=== PATIENT | male | born 1975 | race Caucasian/White ===

== ENCOUNTER 2016-07-31 14:54 | Emergency (ER) | payer BC ==
[2008-09-24 00:02] VITALS: BP 162/90
[~2016-07-31] VITALS: Ht 188 cm; Wt 79.5 kg
[~2016-07-31 14:54] MED LIST: ASPIRIN 32325 MG/TAB PO; ASPIRIN 81M81 MG/TA2 PO; BACTRIM DS 8001 TAB PO; BRILINTA90 MG PO; CEPHALEXIN250 M1; CEPHALEXIN500 M1 PO; CIPRO 100MG TA100 MG PO; CIPRO 250MG TA250 MG PO; CIPRO 500MG TA500 MG PO; CIPRO500 MG PO; CLEOCIN HC150 MG/CAP PO; CLEOCIN HCL300 MG PO; CLINDAMYCIN150 MG PO; DIFLUCAN150 MG PO; DOXYCYCLINE 10100 MG PO; FERROUS GL325 MG/TAB PO; FOLIC ACID 40400 MCG PO; HUMALOG100 U/ML SC; INSULIN LANTUS; LANTUS SOLOS100 U/ML SQ; LANTUS SQ; LANTUS100 U/ML; LANTUS100 U/ML SQ; LEVAQUIN 750MG750 M1 PO; LIORESAL 1010 MG/TAB PO; LOPRESSOR 550 MG/TAB PO; LORTAB 5/500 501 TAB PO; MED FOR TACHYCARDIA; MONODOX100 PO; NORCO 325 MG-51 TAB PO; NORCO 325 MG-7.1 TAB PO; NOVLOG SQ; NOVOLOG 100U100 U/M1; NOVOLOG 100U100 U/M1 SQ; NOVOLOG 100U100 U/ML SQ; NOVOLOG FLEX100 U/ML SQ; NOVOLOG100 U/ML IV; PERCOCET 325 MG1 TA2 PO; PLAVIX 75MG TAB75 MG PO; PRAVACHOL 20MG20 MG PO; PRINIVIL2.5 MG PO; PRINIVIL20 MG PO; SEPTRA DS 8001 TAB PO; THIAMINE 1100 MG/TAB PO; ULTRAM 50MG TAB50 MG PO; ZESTRIL 20MG TA20 MG PO; ZOCOR 40MG40 MG PO; ZOFRAN 4MG T4 MG/TAB PO; ZYVOX 600MG600 MG PO; [UNRECOGNIZED DRUG - OTHER]
[2016-07-31 15:13] VITALS: TEMP 97.2
[2016-07-31 16:04] LABS: BASO # 0.1 (0.0-0.2); BASO % 0.7 % (0.0-2.0); EOS # 0.1 (0.0-0.7); EOS % 1.5 % (0-4.0); GRAN # 6.1 (1.4-6.5); GRAN % 68.1 % (42.2-75.2); HEMOGLOBIN 15.6 g/dl (13.5-18.0); LYMPH % 22.7 % (20.0-51.0); MEAN CELL VOLUME 86 fl (80.0-100.0); MEAN CORPUSCULAR HEMOGLOBIN 29 pg (27.0-31.0); MEAN CORPUSCULAR HGB CONC 34 g/dl (33.0-37.0); MEAN PLATELET VOLUME 10.1 fl (7.4-10.4); MONO # 0.6 (0.1-0.6); MONO % 6.7 % (1.7-9.3); PLATELET COUNT 317 K/mm3 (130-400); RED BLOOD COUNT 5.38 M/mm3 (4.20-5.60); REDCELL DISTRIBUTION WIDTH-CV 12.5 % (11.5-14.5); WHITE BLOOD COUNT 8.9 K/mm3 (4.8-10.8)
[2016-07-31 16:14] LABS: ADJUSTED CALCIUM 9.5 mg/dL (8.4-10.2); ALBUMIN 4.3 gm/dL (3.5-5.0); BILIRUBIN,TOTAL 1.1 mg/dL (0.0-1.0); CALCIUM 9.7 mg/dL (8.4-10.2); CREATININE, serum 1.81 mg/dL (0.66-1.25); POTASSIUM 4.6 mmol/L (3.4-5.0); TOTAL PROTEIN 8.3 gm/dL (6.4-8.2)
[2016-07-31 17:28] LABS: PH 5 (5-8); SQUAMOUS EPITHELIAL None Seen /hpf; URINE APPEARANCE Clear; URINE BACTERIA None Seen /hpf; URINE BILIRUBIN Negative (NEGATIVE); URINE BLOOD 1+ (NEGATIVE); URINE COLOR Yellow; URINE GLUCOSE 3+ (NEGATIVE); URINE KETONE 2+ (NEGATIVE); URINE RBC 0-2 /hpf; URINE UROBILINOGEN Negative (NEGATIVE); URINE WBC 0-2 /hpf
[2016-07-31 18:03] VITALS: BP 143/98
[2016-07-31] MEDS ORDERED: VOLTAREN 75 DR75 MG PO (18:11)
[2016-07-31] MEDS ORDERED: BENADRYL25 M2 PO (18:11)
[2016-07-31] MEDS ORDERED: LEVAQUIN 5500 MG/TA1 PO (18:11)
[2016-07-31] MEDS ORDERED: SUDAFED30 MG PO (18:11)
[2016-07-31 18:48] VITALS: PULSE 86
== END 2016-07-31 18:48 | disposition home or self-care (01) ==
LOC: COL.ER 14:54
PROVIDERS: Emergency Medicine
DX: E10.65 Type 1 diabetes mellitus with hyperglycemia (principal); Z79.4 Long term (current) use of insulin; R51 Headache; J32.0 Chronic maxillary sinusitis; J32.2 Chronic ethmoidal sinusitis; I10 Essential (primary) hypertension; F17.210 Nicotine dependence, cigarettes, uncomplicated; Z89.511 Acquired absence of right leg below knee
CPT/HCPCS: J1200; J1815; J1956; J2765; J3010; J7030

== ENCOUNTER 2016-10-04 10:15 | Outpatient (RCR) | payer OTHER ==
[~2016-10-04 10:15] MED LIST changes: +BENADRYL25 M2 PO; +LEVAQUIN 5500 MG/TA1 PO; +SUDAFED30 MG PO; +VOLTAREN 75 DR75 MG PO
== END 2016-11-26 | disposition home or self-care (01) ==
LOC: WSPT
DX: Z89.511 Acquired absence of right leg below knee (principal); E11.69 Type 2 diabetes mellitus with other specified complication; Z79.4 Long term (current) use of insulin

== ENCOUNTER → 2016-10-17 | Outpatient (CLI) | payer MEDICARE ==
[~2016-10-17] MED LIST changes: +TOPROL XL 50MG50 MG PO; +ZOCOR 20MG20 MG PO
== END ==
LOC: SUN.DIA 08:45
DX: E10.65 Type 1 diabetes mellitus with hyperglycemia (principal); Z79.4 Long term (current) use of insulin; Z71.3 Dietary counseling and surveillance; E78.5 Hyperlipidemia, unspecified; I73.9 Peripheral vascular disease, unspecified
CPT/HCPCS: G0108

== ENCOUNTER → 2016-11-28 | Outpatient (CLI) | payer MEDICARE | LOC: COL.VAS 09:00 | DX: E10.59 Type 1 diabetes mellitus with other circulatory complications (principal); I73.9 Peripheral vascular disease, unspecified; R01.1 Cardiac murmur, unspecified; I35.8 Other nonrheumatic aortic valve disorders; F17.210 Nicotine dependence, cigarettes, uncomplicated; Z89.511 Acquired absence of right leg below knee ==

== ENCOUNTER 2016-12-05 17:00 | Emergency (ER) | payer MEDICARE ==
[2008-09-24 00:02] VITALS: BP 162/90
[~2016-12-05] VITALS: Ht 188 cm; Wt 84.1 kg
[~2016-12-05 17:00] MED LIST changes: -TOPROL XL 50MG50 MG PO; -ZOCOR 20MG20 MG PO
[2016-12-05 17:02] VITALS: TEMP 97.4
[2016-12-05] MEDS ORDERED: ZOCOR 20MG20 MG PO (17:07)
[2016-12-05] MEDS ORDERED: TOPROL XL 50MG50 MG PO (17:17)
[2016-12-05 17:38] LABS: ADJUSTED CALCIUM 8.6 mg/dL (8.4-10.2); BILIRUBIN,TOTAL 0.5 mg/dL (0.0-1.0); CALCIUM 8.6 mg/dL (8.4-10.2); CREATININE, serum 1.54 mg/dL (0.66-1.25); PHOSPHOROUS 3.2 mg/dL (2.5-4.5); POTASSIUM 3.9 mmol/L (3.4-5.0); TOTAL PROTEIN 7.3 gm/dL (6.4-8.2)
[2016-12-05 17:40] LABS: BASO # 0.1 (0.0-0.2); BASO % 0.6 % (0.0-2.0); EOS # 0.2 (0.0-0.7); EOS % 1.8 % (0-4.0); GRAN # 7.3 (1.4-6.5); GRAN % 81.9 % (42.2-75.2); HEMATOCRIT 42.7 % (42.0-52.0); HEMOGLOBIN 14.3 g/dl (13.5-18.0); LYMPH # 0.8 (1.2-3.4); LYMPH % 8.6 % (20.0-51.0); MEAN CELL VOLUME 88 fl (80.0-100.0); MEAN CORPUSCULAR HEMOGLOBIN 30 pg (27.0-31.0); MEAN CORPUSCULAR HGB CONC 34 g/dl (33.0-37.0); MEAN PLATELET VOLUME 10.1 fl (7.4-10.4); MONO # 0.6 (0.1-0.6); MONO % 6.9 % (1.7-9.3); PLATELET COUNT 247 K/mm3 (130-400); RED BLOOD COUNT 4.84 M/mm3 (4.20-5.60); REDCELL DISTRIBUTION WIDTH-CV 12.2 % (11.5-14.5); WHITE BLOOD COUNT 8.9 K/mm3 (4.8-10.8)
[2016-12-05 19:01] VITALS: BP 131/93; PULSE 83
[2016-12-05 19:07] LABS: PH 5 (5-8); SQUAMOUS EPITHELIAL None Seen /hpf; URINE APPEARANCE Clear; URINE BACTERIA None Seen /hpf; URINE BILIRUBIN Negative (NEGATIVE); URINE BLOOD 1+ (NEGATIVE); URINE COLOR Yellow; URINE GLUCOSE 2+ (NEGATIVE); URINE KETONE Negative (NEGATIVE); URINE RBC None Seen /hpf; URINE UROBILINOGEN Negative (NEGATIVE); URINE WBC 0-2 /hpf
== END 2016-12-05 19:02 | disposition home or self-care (01) ==
LOC: COL.ER 17:00
PROVIDERS: Emergency Medicine
DX: E10.649 Type 1 diabetes mellitus with hypoglycemia without coma (principal); Z89.511 Acquired absence of right leg below knee; Z79.4 Long term (current) use of insulin

== ENCOUNTER 2017-01-28 08:42 | Emergency (ER) | payer MEDICARE ==
[2008-09-24 00:02] VITALS: BP 162/90
[~2017-01-28] VITALS: Ht 188 cm; Wt 84.1 kg
[~2017-01-28 08:42] MED LIST changes: +TOPROL XL 50MG50 MG PO; +ZOCOR 20MG20 MG PO
[2017-01-28 08:49] VITALS: TEMP 97
[2017-01-28 09:17] LABS: BASO # 0.1 (0.0-0.2); BASO % 0.5 % (0.0-2.0); EOS # 0.3 (0.0-0.7); EOS % 2.9 % (0-4.0); GRAN # 6.8 (1.4-6.5); GRAN % 75.1 % (42.2-75.2); LYMPH # 1.3 (1.2-3.4); LYMPH % 14.3 % (20.0-51.0); MEAN CELL VOLUME 90 fl (80.0-100.0); MEAN CORPUSCULAR HEMOGLOBIN 29 pg (27.0-31.0); MEAN CORPUSCULAR HGB CONC 33 g/dl (33.0-37.0); MEAN PLATELET VOLUME 9.8 fl (7.4-10.4); MONO # 0.6 (0.1-0.6); MONO % 6.9 % (1.7-9.3); PLATELET COUNT 246 K/mm3 (130-400); RED BLOOD COUNT 4.45 M/mm3 (4.20-5.60); REDCELL DISTRIBUTION WIDTH-CV 12.5 % (11.5-14.5); WHITE BLOOD COUNT 9.1 K/mm3 (4.8-10.8)
[2017-01-28 09:27] LABS: ALBUMIN 3.7 gm/dL (3.5-5.0); BILIRUBIN,TOTAL 0.4 mg/dL (0.0-1.0); CALCIUM 8.8 mg/dL (8.4-10.2); CREATININE, serum 1.27 mg/dL (0.66-1.25); POTASSIUM 3.8 mmol/L (3.4-5.0); TOTAL PROTEIN 6.8 gm/dL (6.4-8.2)
[2017-01-28 10:24] LABS: PH 6 (5-8); SQUAMOUS EPITHELIAL None Seen /hpf; URINE APPEARANCE Clear; URINE BACTERIA None Seen /hpf; URINE BILIRUBIN Negative (NEGATIVE); URINE BLOOD Negative (NEGATIVE); URINE COLOR Yellow; URINE GLUCOSE 3+ (NEGATIVE); URINE KETONE Negative (NEGATIVE); URINE RBC 0-2 /hpf; URINE UROBILINOGEN Negative (NEGATIVE); URINE WBC 0-2 /hpf
[2017-01-28 10:51] VITALS: BP 137/91; PULSE 94
== END 2017-01-28 10:51 | disposition home or self-care (01) ==
LOC: COL.ER 08:42
PROVIDERS: Emergency Medicine
DX: E10.649 Type 1 diabetes mellitus with hypoglycemia without coma (principal); F17.210 Nicotine dependence, cigarettes, uncomplicated; Z79.4 Long term (current) use of insulin; Z79.82 Long term (current) use of aspirin; Z89.412 Acquired absence of left great toe; Z89.511 Acquired absence of right leg below knee

== ENCOUNTER 2017-10-01 16:16 | Inpatient (IN) | payer MEDICARE ==
[~2017-10-01] VITALS: Ht 188 cm; Wt 80.0 kg
[2017-10-01 18:15] LABS: MEAN CELL VOLUME 86 fl (80.0-100.0); MEAN CORPUSCULAR HGB CONC 34 g/dl (33.0-37.0); MEAN PLATELET VOLUME 9.9 fl (7.4-10.4); PLATELET COUNT 362 K/mm3 (130-400); RED BLOOD COUNT 3.75 M/mm3 (4.20-5.60); REDCELL DISTRIBUTION WIDTH-CV 12.2 % (11.5-14.5)
[2017-10-01 18:17] LABS: HEMATOCRIT 32.4 % (42.0-52.0); HEMOGLOBIN 10.9 g/dl (13.5-18.0); MEAN CORPUSCULAR HEMOGLOBIN 29 pg (27.0-31.0)
[2017-10-01 18:21] LABS: ALBUMIN 3.6 gm/dL (3.5-5.0); BILIRUBIN,TOTAL 0.9 mg/dL (0.0-1.0); CALCIUM 8.2 mg/dL (8.4-10.2); CREATININE, serum 1.5 mg/dL (0.66-1.25); POTASSIUM 4.1 mmol/L (3.4-5.0); TOTAL PROTEIN 7.2 gm/dL (6.4-8.2)
[2017-10-01 18:36] LABS: BAND 10 % (0-10); LYMPHOCYTE 15 % (20.0-51.0); NEUTROPHILS 66 % (42.0-75.2); PLATELET ESTIMATE NORMAL (NORMAL)
[2017-10-01 19:09] LABS: C-REACTIVE PROTEIN 33.2 mg/dL (0.0-0.9)
[2017-10-01 21:39] VITALS: BP 116/72; PULSE 96; TEMP 100.7
[2017-10-02 01:11] VITALS: BP 115/68; PULSE 107; TEMP 102.1
[2017-10-02 03:26] LABS: COLLECTION METHOD CLEAN CATCH
[2017-10-02 03:39] LABS: MUCOUS Present /lpf; PH 5 (5-8); SQUAMOUS EPITHELIAL 0-2 /hpf; URINE APPEARANCE Clear; URINE BACTERIA None Seen /hpf; URINE BILIRUBIN Negative (NEGATIVE); URINE BLOOD 3+ (NEGATIVE); URINE COLOR Yellow; URINE GLUCOSE 3+ (NEGATIVE); URINE KETONE 1+ (NEGATIVE); URINE LEUKOCYTE ESTERASE Negative (NEGATIVE); URINE NITRATE Negative (NEGATIVE); URINE PROTEIN(semi-quant) Negative (NEGATIVE); URINE UROBILINOGEN Negative (NEGATIVE)
[2017-10-02 04:25] VITALS: BP 101/63; PULSE 88; TEMP 99.1
[2017-10-02 06:22] LABS: MEAN CELL VOLUME 86 fl (80.0-100.0); MEAN CORPUSCULAR HGB CONC 33 g/dl (33.0-37.0); PLATELET COUNT 381 K/mm3 (130-400); RED BLOOD COUNT 3.55 M/mm3 (4.20-5.60); REDCELL DISTRIBUTION WIDTH-CV 12.2 % (11.5-14.5)
[2017-10-02 06:25] LABS: HEMATOCRIT 30.6 % (42.0-52.0); HEMOGLOBIN 10.1 g/dl (13.5-18.0); MEAN CORPUSCULAR HEMOGLOBIN 28 pg (27.0-31.0)
[2017-10-02 06:40] LABS: ALBUMIN 3.2 gm/dL (3.5-5.0); BILIRUBIN,TOTAL 0.5 mg/dL (0.0-1.0); CALCIUM 7.9 mg/dL (8.4-10.2); CREATININE, serum 1.34 mg/dL (0.66-1.25); POTASSIUM 3.9 mmol/L (3.4-5.0); TOTAL PROTEIN 6.6 gm/dL (6.4-8.2)
[2017-10-02 07:09] LABS: BAND 22 % (0-10); BASOPHIL 1 % (0-2); EOSINOPHIL 1 % (0-4); LYMPHOCYTE 18 % (20.0-51.0); NEUTROPHILS 50 % (42.0-75.2); PLATELET ESTIMATE NORMAL (NORMAL)
[2017-10-02 07:43] VITALS: BP 98/62; PULSE 94; TEMP 99.8
[2017-10-02 11:31] VITALS: BP 106/66; PULSE 101; TEMP 99.5
[2017-10-02 15:01] VITALS: BP 129/69; PULSE 97; TEMP 101.7
[2017-10-02 20:31] VITALS: BP 118/68; PULSE 100; TEMP 101
[2017-10-03 01:35] VITALS: BP 127/88; PULSE 92; TEMP 99.3
[2017-10-03 05:04] VITALS: BP 124/74; PULSE 93; TEMP 99.8
[2017-10-03 06:42] LABS: MEAN CELL VOLUME 87 fl (80.0-100.0); MEAN CORPUSCULAR HGB CONC 33 g/dl (33.0-37.0); MEAN PLATELET VOLUME 9.8 fl (7.4-10.4); PLATELET COUNT 394 K/mm3 (130-400); RED BLOOD COUNT 3.57 M/mm3 (4.20-5.60); REDCELL DISTRIBUTION WIDTH-CV 12.2 % (11.5-14.5)
[2017-10-03 07:03] LABS: HEMATOCRIT 31.2 % (42.0-52.0); HEMOGLOBIN 10.2 g/dl (13.5-18.0); MEAN CORPUSCULAR HEMOGLOBIN 29 pg (27.0-31.0)
[2017-10-03 07:05] LABS: CALCIUM 7.7 mg/dL (8.4-10.2); CREATININE, serum 1.17 mg/dL (0.66-1.25); POTASSIUM 4.1 mmol/L (3.4-5.0)
[2017-10-03 08:41] VITALS: BP 116/76; PULSE 92; TEMP 98.4
[2017-10-03 08:41] LABS: BAND 18 % (0-10); EOSINOPHIL 1 % (0-4); LYMPHOCYTE 15 % (20.0-51.0); NEUTROPHILS 58 % (42.0-75.2); PLATELET ESTIMATE NORMAL (NORMAL)
[2017-10-03 08:42] LABS: HYPOCHROMIA 1+
[2017-10-03 12:05] VITALS: BP 120/71; PULSE 89; TEMP 98.2
[2017-10-03 15:58] VITALS: BP 106/71; PULSE 79; TEMP 98.6
[2017-10-03 20:51] VITALS: BP 139/87; PULSE 107; TEMP 100.7
[2017-10-04] VITALS (8 sets, daily range): BP systolic 117–145; BP diastolic 57–80; PULSE 72–99; TEMP 98–101.3
[2017-10-04 06:51] LABS: MEAN CELL VOLUME 88 fl (80.0-100.0); MEAN CORPUSCULAR HGB CONC 33 g/dl (33.0-37.0); MEAN PLATELET VOLUME 9.7 fl (7.4-10.4); PLATELET COUNT 449 K/mm3 (130-400); RED BLOOD COUNT 3.54 M/mm3 (4.20-5.60); REDCELL DISTRIBUTION WIDTH-CV 12.4 % (11.5-14.5)
[2017-10-04 06:55] LABS: CALCIUM 7.9 mg/dL (8.4-10.2); CREATININE, serum 1.07 mg/dL (0.66-1.25); HEMOGLOBIN 10.1 g/dl (13.5-18.0); MEAN CORPUSCULAR HEMOGLOBIN 29 pg (27.0-31.0); POTASSIUM 3.6 mmol/L (3.4-5.0)
[2017-10-04 07:36] LABS: BAND 14 % (0-10); BASOPHIL 1 % (0-2); EOSINOPHIL 2 % (0-4); LYMPHOCYTE 14 % (20.0-51.0); MYELOCYTE 2 % (0-0); NEUTROPHILS 57 % (42.0-75.2)
[2017-10-04 07:37] LABS: PLATELET ESTIMATE INCREASED (NORMAL)
[2017-10-04 07:38] LABS: POLYCHROMASIA 1+
[2017-10-05 04:29] VITALS: BP 129/85; PULSE 96; TEMP 98.4
[2017-10-05 06:49] LABS: BASO # 0.1 (0.0-0.2); BASO % 0.4 % (0.0-2.0); EOS # 0.2 (0.0-0.7); EOS % 1.6 % (0-4.0); GRAN # 10.2 (1.4-6.5); GRAN % 77.9 % (42.2-75.2); LYMPH # 1.3 (1.2-3.4); LYMPH % 9.8 % (20.0-51.0); MEAN CELL VOLUME 87 fl (80.0-100.0); MEAN CORPUSCULAR HGB CONC 33 g/dl (33.0-37.0); MEAN PLATELET VOLUME 9.6 fl (7.4-10.4); MONO # 1.3 (0.1-0.6); MONO % 9.6 % (1.7-9.3); PLATELET COUNT 488 K/mm3 (130-400); RED BLOOD COUNT 3.29 M/mm3 (4.20-5.60); REDCELL DISTRIBUTION WIDTH-CV 12.3 % (11.5-14.5)
[2017-10-05 06:58] LABS: HEMATOCRIT 28.7 % (42.0-52.0); HEMOGLOBIN 9.4 g/dl (13.5-18.0); MEAN CORPUSCULAR HEMOGLOBIN 29 pg (27.0-31.0)
[2017-10-05 07:08] LABS: CALCIUM 7.8 mg/dL (8.4-10.2); CREATININE, serum 0.91 mg/dL (0.66-1.25); POTASSIUM 3.8 mmol/L (3.4-5.0)
[2017-10-05 07:26] VITALS: BP 120/74; PULSE 87; TEMP 98.8
[2017-10-05 11:30] VITALS: PULSE 88; TEMP 100.3
[2017-10-05 15:24] VITALS: BP 137/86; PULSE 84; TEMP 98.3
[2017-10-05 19:46] VITALS: BP 108/59; PULSE 100; TEMP 98.7
[2017-10-06] VITALS (7 sets, daily range): BP systolic 120–142; BP diastolic 66–83; PULSE 75–101; TEMP 98.3–99.6
[2017-10-06 07:22] LABS: BASO # 0.1 (0.0-0.2); BASO % 0.5 % (0.0-2.0); EOS # 0.2 (0.0-0.7); GRAN # 7.9 (1.4-6.5); GRAN % 71.7 % (42.2-75.2); LYMPH # 1.6 (1.2-3.4); LYMPH % 14.5 % (20.0-51.0); MEAN CELL VOLUME 88 fl (80.0-100.0); MEAN CORPUSCULAR HGB CONC 33 g/dl (33.0-37.0); MEAN PLATELET VOLUME 9.3 fl (7.4-10.4); MONO # 1.2 (0.1-0.6); MONO % 10.8 % (1.7-9.3); PLATELET COUNT 488 K/mm3 (130-400); RED BLOOD COUNT 3.32 M/mm3 (4.20-5.60); REDCELL DISTRIBUTION WIDTH-CV 12.4 % (11.5-14.5)
[2017-10-06 07:29] LABS: HEMATOCRIT 29.1 % (42.0-52.0); HEMOGLOBIN 9.5 g/dl (13.5-18.0); MEAN CORPUSCULAR HEMOGLOBIN 29 pg (27.0-31.0)
[2017-10-06 07:31] LABS: CALCIUM 7.8 mg/dL (8.4-10.2); CREATININE, serum 1.03 mg/dL (0.66-1.25); POTASSIUM 3.5 mmol/L (3.4-5.0)
[2017-10-06 19:45] LABS: SYNOVIAL FL. MONONUCLEAR 8.6 % (0-75); SYNOVIAL FLUID RBC 249000 /mm3 (0-0); SYNOVIAL FLUID WBC 72572 /mm3 (200-600)
[2017-10-06 23:17] LABS: SYNOVIAL FLUID APPEARANCE TURBID; SYNOVIAL FLUID COLOR RED
[2017-10-07 04:29] VITALS: BP 147/80; PULSE 80; TEMP 98.6
[2017-10-07 06:52] LABS: BASO % 0.4 % (0.0-2.0); EOS # 0.2 (0.0-0.7); EOS % 2.5 % (0-4.0); GRAN # 6.7 (1.4-6.5); GRAN % 71.3 % (42.2-75.2); LYMPH # 1.3 (1.2-3.4); MEAN CELL VOLUME 87 fl (80.0-100.0); MEAN CORPUSCULAR HGB CONC 32 g/dl (33.0-37.0); MEAN PLATELET VOLUME 9.1 fl (7.4-10.4); MONO # 1.1 (0.1-0.6); MONO % 11.3 % (1.7-9.3); PLATELET COUNT 520 K/mm3 (130-400); REDCELL DISTRIBUTION WIDTH-CV 12.6 % (11.5-14.5)
[2017-10-07 07:12] LABS: HEMATOCRIT 29.7 % (42.0-52.0); HEMOGLOBIN 9.6 g/dl (13.5-18.0); MEAN CORPUSCULAR HEMOGLOBIN 28 pg (27.0-31.0)
[2017-10-07 07:14] LABS: CALCIUM 7.9 mg/dL (8.4-10.2); CREATININE, serum 1.04 mg/dL (0.66-1.25); MAGNESIUM 2.1 mg/dL (1.6-2.3); PHOSPHOROUS 3.2 mg/dL (2.5-4.5); POTASSIUM 3.5 mmol/L (3.4-5.0)
[2017-10-07 07:35] VITALS: BP 119/74; PULSE 86; TEMP 98.4
[2017-10-07 12:10] VITALS: BP 139/83; PULSE 87; TEMP 97.9
[2017-10-07 15:42] VITALS: BP 147/88; PULSE 93; TEMP 97.6
[2017-10-07 21:03] VITALS: BP 126/80; PULSE 88; TEMP 98.3
[2017-10-07 23:29] VITALS: BP 104/62; PULSE 87; TEMP 98.6
[2017-10-08 04:09] VITALS: BP 116/69; PULSE 78; TEMP 98.5
[2017-10-08 06:42] LABS: BASO % 0.5 % (0.0-2.0); EOS # 0.2 (0.0-0.7); EOS % 2.8 % (0-4.0); GRAN # 5.4 (1.4-6.5); GRAN % 63.4 % (42.2-75.2); LYMPH # 1.9 (1.2-3.4); LYMPH % 21.7 % (20.0-51.0); MEAN CELL VOLUME 88 fl (80.0-100.0); MEAN CORPUSCULAR HGB CONC 32 g/dl (33.0-37.0); MEAN PLATELET VOLUME 9.2 fl (7.4-10.4); MONO # 0.9 (0.1-0.6); MONO % 10.9 % (1.7-9.3); PLATELET COUNT 530 K/mm3 (130-400); RED BLOOD COUNT 3.27 M/mm3 (4.20-5.60); REDCELL DISTRIBUTION WIDTH-CV 12.6 % (11.5-14.5)
[2017-10-08 06:53] LABS: CALCIUM 7.7 mg/dL (8.4-10.2); CREATININE, serum 1.1 mg/dL (0.66-1.25); MAGNESIUM 2.1 mg/dL (1.6-2.3); PHOSPHOROUS 3.6 mg/dL (2.5-4.5); POTASSIUM 3.7 mmol/L (3.4-5.0)
[2017-10-08 06:55] LABS: HEMATOCRIT 28.8 % (42.0-52.0); HEMOGLOBIN 9.3 g/dl (13.5-18.0); MEAN CORPUSCULAR HEMOGLOBIN 28 pg (27.0-31.0)
[2017-10-08 08:47] VITALS: BP 123/80; PULSE 88; TEMP 98.5
[2017-10-08 10:56] VITALS: BP 134/80; PULSE 78; TEMP 98.6
[2017-10-08 15:17] VITALS: BP 103/93; PULSE 85; TEMP 98.6
[2017-10-08 20:11] VITALS: BP 101/55; PULSE 99; TEMP 98.5
[2017-10-09 00:54] VITALS: BP 122/74; PULSE 84; TEMP 98.6
[2017-10-09 04:47] VITALS: BP 124/81; PULSE 72; TEMP 98.6
[2017-10-09 06:36] LABS: BASO % 0.5 % (0.0-2.0); EOS # 0.3 (0.0-0.7); EOS % 3.2 % (0-4.0); GRAN # 4.9 (1.4-6.5); GRAN % 64.2 % (42.2-75.2); LYMPH # 1.7 (1.2-3.4); LYMPH % 21.6 % (20.0-51.0); MEAN CELL VOLUME 88 fl (80.0-100.0); MEAN CORPUSCULAR HGB CONC 32 g/dl (33.0-37.0); MEAN PLATELET VOLUME 9.5 fl (7.4-10.4); MONO # 0.8 (0.1-0.6); MONO % 9.7 % (1.7-9.3); PLATELET COUNT 485 K/mm3 (130-400); RED BLOOD COUNT 3.36 M/mm3 (4.20-5.60); REDCELL DISTRIBUTION WIDTH-CV 12.4 % (11.5-14.5)
[2017-10-09 06:37] LABS: HEMATOCRIT 29.7 % (42.0-52.0); HEMOGLOBIN 9.6 g/dl (13.5-18.0); MEAN CORPUSCULAR HEMOGLOBIN 29 pg (27.0-31.0)
[2017-10-09 06:54] LABS: CALCIUM 8.2 mg/dL (8.4-10.2); CREATININE, serum 0.96 mg/dL (0.66-1.25); POTASSIUM 4.5 mmol/L (3.4-5.0)
[2017-10-09 07:36] VITALS: BP 143/82; PULSE 74; TEMP 97.6
[2017-10-09 11:28] VITALS: BP 93/57; PULSE 91; TEMP 98.1
[2017-10-09 15:43] VITALS: BP 110/75; PULSE 73; TEMP 98.9
[2017-10-09 19:50] VITALS: BP 103/61; PULSE 81; TEMP 98.5
[2017-10-10 00:25] VITALS: BP 109/78; PULSE 74; TEMP 98.6
[2017-10-10 05:40] VITALS: BP 118/72; PULSE 78; TEMP 98.6
[2017-10-10 06:52] LABS: BASO % 0.5 % (0.0-2.0); EOS # 0.3 (0.0-0.7); EOS % 3.1 % (0-4.0); GRAN # 5.3 (1.4-6.5); GRAN % 64.4 % (42.2-75.2); LYMPH # 1.8 (1.2-3.4); LYMPH % 22.5 % (20.0-51.0); MEAN CELL VOLUME 89 fl (80.0-100.0); MEAN CORPUSCULAR HGB CONC 32 g/dl (33.0-37.0); MEAN PLATELET VOLUME 9.6 fl (7.4-10.4); MONO # 0.7 (0.1-0.6); PLATELET COUNT 427 K/mm3 (130-400); RED BLOOD COUNT 3.39 M/mm3 (4.20-5.60); REDCELL DISTRIBUTION WIDTH-CV 12.3 % (11.5-14.5)
[2017-10-10 06:59] LABS: CALCIUM 8.2 mg/dL (8.4-10.2); CREATININE, serum 0.99 mg/dL (0.66-1.25); POTASSIUM 4.4 mmol/L (3.4-5.0)
[2017-10-10 07:14] LABS: HEMOGLOBIN 9.5 g/dl (13.5-18.0); MEAN CORPUSCULAR HEMOGLOBIN 28 pg (27.0-31.0)
[2017-10-10 08:03] VITALS: BP 117/79; PULSE 80; TEMP 98.9
[2017-10-10 11:16] VITALS: BP 121/76; PULSE 91; TEMP 98.7
[2017-10-10] MEDS ORDERED: TYLENOL 325MG325 MG PO (15:12)
[2017-10-10] MEDS ORDERED: Florastor PO (15:12)
[2017-10-10] MEDS ORDERED: NOVOLOG 100U100 U/M1 SQ ×2 (15:13→15:14)
[2017-10-10] MEDS ORDERED: PROBIOTIC ACID1 EAC3 PO (15:13)
[2017-10-10] MEDS ORDERED: LEVEMIR100 U/ML SQ (15:13)
[2017-10-10] MEDS ORDERED: MELAT3MGTAB PO (15:14)
[2017-10-10] MEDS ORDERED: VANCOCIN HCL500 MG IV (15:16)
[2017-10-10] MEDS ORDERED: CEFEPIME2 GM/100 M IV (15:20)
[2017-10-10 15:59] VITALS: BP 122/79; PULSE 87; TEMP 98.7
[2017-10-10 20:13] VITALS: BP 113/65; PULSE 86; TEMP 97.9
[2017-10-11] VITALS (14 sets, daily range): BP systolic 93–145; BP diastolic 58–91; PULSE 61–86; TEMP 97.8–99.1
== END 2017-10-11 20:18 | disposition home or self-care (01) | DRG 854 ==
LOC: COL.ER 16:16 → MEDICAL 19:20
PROVIDERS: Internal Medicine; Nurse Practitioner; Nurse Practitioner Family; Orthopaedic Surgery; Physician Assistant
PROC: 0S9G3ZX Drainage of Left Ankle Joint, Percutaneous Approach, Diagnostic (ICD-10-PCS; 2017-10-06)
PROC: 0MD Bursae and Ligaments, Extraction (ICD-10-PCS; 2017-10-11)
PROC: 0SJG4ZZ Inspection of Left Ankle Joint, Percutaneous Endoscopic Approach (ICD-10-PCS; principal; 2017-10-11 07:00)
DX: A41.01 Sepsis due to Methicillin susceptible Staphylococcus aureus (principal); M00.872 Arthritis due to other bacteria, left ankle and foot; L03.116 Cellulitis of left lower limb; N17.9 Acute kidney failure, unspecified; N39.0 Urinary tract infection, site not specified; E87.1 Hypo-osmolality and hyponatremia; L97.429 Non-pressure chronic ulcer of left heel and midfoot with unspecified severity; L97.419 Non-pressure chronic ulcer of right heel and midfoot with unspecified severity; E10.22 Type 1 diabetes mellitus with diabetic chronic kidney disease; E10.65 Type 1 diabetes mellitus with hyperglycemia; N18.3 Chronic kidney disease, stage 3 (moderate); Z79.4 Long term (current) use of insulin; Z89.511 Acquired absence of right leg below knee; E10.621 Type 1 diabetes mellitus with foot ulcer; Z89.412 Acquired absence of left great toe; E10.42 Type 1 diabetes mellitus with diabetic polyneuropathy; Z87.891 Personal history of nicotine dependence; B95.61 Methicillin susceptible Staphylococcus aureus infection as the cause of diseases classified elsewhere; D64.9 Anemia, unspecified
CPT/HCPCS: OP; 99222-AI; 99231-AI; 99232-AI; A9503; C1751; G0378; J0692; J0696; J1644; J1815; J2060; J2250; J2270; J2405; J2704; J2765; J3010; J3370; J7030; J7050

== ENCOUNTER 2017-10-13 17:08 | Outpatient (RCR) | payer MEDICARE ==
[2008-09-24 00:02] VITALS: BP 162/90
[2017-10-12 06:43] VITALS: BP 111/70; PULSE 92; TEMP 98.7
[2017-10-12 18:03] VITALS: BP 88/59; PULSE 97; TEMP 98
[~2017-10-13] VITALS: Ht 188 cm; Wt 81.0 kg
[~2017-10-13 17:08] MED LIST changes: +CEFEPIME2 GM/100 M IV; +Florastor PO; +LEVEMIR100 U/ML SQ; +MELAT3MGTAB PO; +PROBIOTIC ACID1 EAC3 PO; +TYLENOL 325MG325 MG PO; +VANCOCIN HCL500 MG IV
[2017-10-14 07:32] VITALS: BP 95/61; PULSE 91; TEMP 98
[2017-10-15 07:17] VITALS: BP 86/56; PULSE 86; TEMP 98.1
[2017-10-15 17:25] VITALS: BP 92/61; PULSE 97; TEMP 97.9
[2017-10-16 06:32] VITALS: BP 106/68; PULSE 101; TEMP 97.5
[2017-10-16 17:19] VITALS: BP 110/72; PULSE 96; TEMP 97.9
[2017-10-17 06:47] VITALS: BP 96/62; PULSE 98; TEMP 97.2
[2017-10-17 17:53] VITALS: BP 112/64; PULSE 101; TEMP 97.4
[2017-10-18 07:01] VITALS: BP 103/67; PULSE 97; TEMP 98
[2017-10-18 17:39] VITALS: BP 88/51; PULSE 106; TEMP 98.1
[2017-10-18 17:48] VITALS: BP 111/80; PULSE 106; TEMP 98
[2017-10-19 06:50] VITALS: BP 104/68; PULSE 94; TEMP 97.7
[2017-10-21 08:38] VITALS: BP 112/66; PULSE 90; TEMP 97.6
[2017-10-22 06:48] VITALS: BP 107/74; PULSE 61; TEMP 97.4
[2017-10-22 16:55] VITALS: BP 110/76; PULSE 76; TEMP 97.6
[2017-10-23 06:54] VITALS: BP 118/75; PULSE 94; TEMP 98.1
[2017-10-23 17:30] VITALS: BP 119/81; PULSE 91; TEMP 97.8
[2017-10-24 06:55] LABS: BASO # 0.1 (0.0-0.2); BASO % 1.3 % (0.0-2.0); EOS # 0.6 (0.0-0.7); EOS % 9.1 % (0-4.0); GRAN % 57.1 % (42.2-75.2); LYMPH # 1.7 (1.2-3.4); LYMPH % 24.1 % (20.0-51.0); MEAN CELL VOLUME 88 fl (80.0-100.0); MEAN CORPUSCULAR HGB CONC 32 g/dl (33.0-37.0); MEAN PLATELET VOLUME 8.9 fl (7.4-10.4); MONO # 0.6 (0.1-0.6); MONO % 8.1 % (1.7-9.3); PLATELET COUNT 299 K/mm3 (130-400); RED BLOOD COUNT 3.35 M/mm3 (4.20-5.60); REDCELL DISTRIBUTION WIDTH-CV 13.2 % (11.5-14.5)
[2017-10-24 06:56] LABS: HEMATOCRIT 29.4 % (42.0-52.0); HEMOGLOBIN 9.4 g/dl (13.5-18.0); MEAN CORPUSCULAR HEMOGLOBIN 28 pg (27.0-31.0)
[2017-10-24 07:02] VITALS: BP 111/71; PULSE 48; TEMP 98
[2017-10-24 07:20] LABS: ALBUMIN 3.3 gm/dL (3.5-5.0); BILIRUBIN,TOTAL 0.2 mg/dL (0.0-1.0); C-REACTIVE PROTEIN 1.3 mg/dL (0.0-0.9); CALCIUM 8.4 mg/dL (8.4-10.2); CREATININE, serum 1.26 mg/dL (0.66-1.25); POTASSIUM 4.7 mmol/L (3.4-5.0); TOTAL PROTEIN 7.5 gm/dL (6.4-8.2)
[2017-10-24 07:30] LABS: ERYTHROCYTE SEDIMENTATION RATE 75 mm/hr (0-15)
[2017-10-24 17:35] VITALS: BP 110/75; PULSE 109; TEMP 98.4
[2017-10-25 07:09] VITALS: BP 104/64; PULSE 102; TEMP 97.4
[2017-10-25 17:34] VITALS: BP 80/55; PULSE 115; TEMP 98.1
[2017-10-26 07:18] VITALS: BP 109/58; PULSE 89; TEMP 98
[2017-10-26 17:00] VITALS: BP 99/68; PULSE 103; TEMP 97.7
[2017-10-26 21:58] LABS: C-PEPTIDE,SERUM <0.01 ng/mL (0.80-3.90)
[2017-10-27 01:40] LABS: INSULIN 8 uIU/mL (2-23)
[2017-10-27 07:48] VITALS: BP 107/78; PULSE 97; TEMP 97
[2017-10-28 07:35] VITALS: BP 117/47; PULSE 93; TEMP 97.7
[2017-10-29 06:43] LABS: BASO # 0.1 (0.0-0.2); BASO % 0.9 % (0.0-2.0); EOS # 0.6 (0.0-0.7); EOS % 11.2 % (0-4.0); GRAN # 2.9 (1.4-6.5); GRAN % 50.3 % (42.2-75.2); LYMPH # 1.4 (1.2-3.4); LYMPH % 25.1 % (20.0-51.0); MEAN CELL VOLUME 88 fl (80.0-100.0); MEAN CORPUSCULAR HGB CONC 32 g/dl (33.0-37.0); MONO # 0.7 (0.1-0.6); MONO % 12.3 % (1.7-9.3); PLATELET COUNT 273 K/mm3 (130-400); REDCELL DISTRIBUTION WIDTH-CV 13.8 % (11.5-14.5)
[2017-10-29 06:44] LABS: HEMOGLOBIN 9.5 g/dl (13.5-18.0); MEAN CORPUSCULAR HEMOGLOBIN 28 pg (27.0-31.0)
[2017-10-29 06:56] LABS: ALBUMIN 3.5 gm/dL (3.5-5.0); BILIRUBIN,TOTAL 0.3 mg/dL (0.0-1.0); C-REACTIVE PROTEIN 1.3 mg/dL (0.0-0.9); CALCIUM 8.6 mg/dL (8.4-10.2); CREATININE, serum 1.25 mg/dL (0.66-1.25); POTASSIUM 4.3 mmol/L (3.4-5.0); TOTAL PROTEIN 7.9 gm/dL (6.4-8.2)
[2017-10-29 07:07] LABS: ERYTHROCYTE SEDIMENTATION RATE 73 mm/hr (0-15)
[2017-10-29 07:25] VITALS: BP 113/87; PULSE 97; TEMP 98.1
[2017-10-29 17:15] VITALS: BP 115/80; PULSE 92; TEMP 98.4
[2017-10-30 08:03] VITALS: BP 122/77; PULSE 95; TEMP 98
[2017-10-30 16:43] VITALS: BP 128/78; PULSE 98; TEMP 98
[2017-10-31 06:15] VITALS: BP 117/82; PULSE 104; TEMP 98.4
[2017-10-31 18:15] VITALS: BP 110/60; PULSE 99; TEMP 98
[2017-11-01 06:46] VITALS: BP 114/70; PULSE 95
[2017-11-01 16:26] VITALS: BP 111/73; PULSE 90; TEMP 98.2
[2017-11-02 06:43] VITALS: BP 111/73; PULSE 89
[2017-11-02 16:45] VITALS: BP 107/71; PULSE 103; TEMP 98.3
[2017-11-03 07:35] VITALS: BP 109/77; PULSE 92; TEMP 97
[2017-11-04 07:41] VITALS: BP 94/63; PULSE 90; TEMP 98.1
[2017-11-04 08:35] VITALS: BP 127/78; PULSE 90
[2017-11-05 06:47] VITALS: BP 147/87; PULSE 94; TEMP 97.9
[2017-11-05 07:15] LABS: BASO # 0.1 (0.0-0.2); BASO % 0.9 % (0.0-2.0); EOS # 0.5 (0.0-0.7); EOS % 9.3 % (0-4.0); GRAN # 2.9 (1.4-6.5); GRAN % 52.5 % (42.2-75.2); LYMPH # 1.4 (1.2-3.4); LYMPH % 25.4 % (20.0-51.0); MEAN CELL VOLUME 88 fl (80.0-100.0); MEAN CORPUSCULAR HGB CONC 32 g/dl (33.0-37.0); MEAN PLATELET VOLUME 9.4 fl (7.4-10.4); MONO # 0.6 (0.1-0.6); MONO % 11.7 % (1.7-9.3); PLATELET COUNT 237 K/mm3 (130-400); REDCELL DISTRIBUTION WIDTH-CV 14.3 % (11.5-14.5)
[2017-11-05 07:16] LABS: HEMATOCRIT 31.7 % (42.0-52.0); MEAN CORPUSCULAR HEMOGLOBIN 28 pg (27.0-31.0)
[2017-11-05 07:57] LABS: ALBUMIN 3.6 gm/dL (3.5-5.0); BILIRUBIN,TOTAL 0.4 mg/dL (0.0-1.0); CALCIUM 8.6 mg/dL (8.4-10.2); CREATININE, serum 1.27 mg/dL (0.66-1.25); POTASSIUM 4.6 mmol/L (3.4-5.0); TOTAL PROTEIN 7.7 gm/dL (6.4-8.2)
[2017-11-05 18:00] VITALS: BP 109/80; PULSE 92; TEMP 97.8
[2017-11-06 06:36] VITALS: BP 119/80; PULSE 96
[2017-11-06 18:27] VITALS: BP 107/70; PULSE 86; TEMP 98.2
[2017-11-07 06:56] VITALS: BP 107/76; PULSE 94
[2017-11-07 19:02] VITALS: BP 95/59; PULSE 102; TEMP 97.2
[2017-11-08 07:29] VITALS: BP 101/64; PULSE 86; TEMP 97.7
[2017-11-08 18:17] VITALS: BP 115/70; PULSE 93; TEMP 98
[2017-11-09 06:48] VITALS: BP 105/72; PULSE 100; TEMP 98.1
[2017-11-09 17:59] VITALS: BP 121/71; PULSE 104; TEMP 98.2
[2017-11-10 07:30] VITALS: BP 104/75; PULSE 88; TEMP 97.8
[2017-11-11 07:30] VITALS: BP 105/71; PULSE 86; TEMP 97.4
[2017-11-12 07:02] LABS: BASO % 0.6 % (0.0-2.0); EOS # 0.3 (0.0-0.7); EOS % 5.8 % (0-4.0); GRAN % 56.7 % (42.2-75.2); LYMPH # 1.3 (1.2-3.4); LYMPH % 25.1 % (20.0-51.0); MEAN CELL VOLUME 87 fl (80.0-100.0); MEAN CORPUSCULAR HGB CONC 33 g/dl (33.0-37.0); MEAN PLATELET VOLUME 9.2 fl (7.4-10.4); MONO # 0.6 (0.1-0.6); MONO % 11.4 % (1.7-9.3); PLATELET COUNT 257 K/mm3 (130-400); REDCELL DISTRIBUTION WIDTH-CV 14.2 % (11.5-14.5)
[2017-11-12 07:05] LABS: HEMATOCRIT 32.2 % (42.0-52.0); HEMOGLOBIN 10.5 g/dl (13.5-18.0); MEAN CORPUSCULAR HEMOGLOBIN 28 pg (27.0-31.0)
[2017-11-12 07:16] LABS: ALBUMIN 3.7 gm/dL (3.5-5.0); BILIRUBIN,TOTAL 0.3 mg/dL (0.0-1.0); C-REACTIVE PROTEIN 0.8 mg/dL (0.0-0.9); CALCIUM 8.9 mg/dL (8.4-10.2); CREATININE, serum 1.21 mg/dL (0.66-1.25); TOTAL PROTEIN 7.8 gm/dL (6.4-8.2)
[2017-11-12 07:26] LABS: ERYTHROCYTE SEDIMENTATION RATE 28 mm/hr (0-15)
[2017-11-12 08:00] VITALS: BP 102/65; PULSE 84; TEMP 97.9
[2017-11-12 18:21] VITALS: BP 136/88; PULSE 102; TEMP 98
[2017-11-13 06:42] VITALS: BP 108/70; PULSE 90; TEMP 97.3
[2017-11-14 06:42] VITALS: BP 102/71; PULSE 84; TEMP 97.4
[2017-11-14 17:41] VITALS: BP 127/82; PULSE 97; TEMP 98.2
[2017-11-15 06:39] VITALS: BP 122/78; PULSE 88; TEMP 97.8
[2017-11-15 17:42] VITALS: BP 120/82; PULSE 81; TEMP 97.6
[2017-11-19 09:31] VITALS: BP 115/73; PULSE 86; TEMP 98
[2017-11-23 11:48] VITALS: BP 98/65; PULSE 90; TEMP 98
== END 2017-11-23 11:49 | disposition home or self-care (01) ==
LOC: EUO 10-14 06:30
PROVIDERS: Internal Medicine; Internal Medicine Infectious Disease; Registered Nurse
DX: L03.90 Cellulitis, unspecified (principal); B99.9 Unspecified infectious disease; M00.9 Pyogenic arthritis, unspecified; E16.2 Hypoglycemia, unspecified; E10.59 Type 1 diabetes mellitus with other circulatory complications; Z79.4 Long term (current) use of insulin; Z45.2 Encounter for adjustment and management of vascular access device
CPT/HCPCS: J0692; J1644; J3370; J7050

== ENCOUNTER → 2017-12-28 | Outpatient (CLI) | payer MEDICARE | LOC: COL.LAB 09:51 | DX: E11.621 Type 2 diabetes mellitus with foot ulcer (principal) ==

== ENCOUNTER → 2018-01-11 | Outpatient (CLI) | payer MEDICARE ==
[2018-01-11 11:28] LABS: RED BLOOD COUNT 4.69 M/mm3 (4.20-5.60)
[2018-01-11 11:29] LABS: HEMATOCRIT 39.8 % (42.0-52.0); HEMOGLOBIN 13.3 g/dl (13.5-18.0); MEAN CELL VOLUME 85 fl (80.0-100.0); MEAN CORPUSCULAR HEMOGLOBIN 28 pg (27.0-31.0); MEAN CORPUSCULAR HGB CONC 33 g/dl (33.0-37.0); MEAN PLATELET VOLUME 9.6 fl (7.4-10.4); PLATELET COUNT 260 K/mm3 (130-400); REDCELL DISTRIBUTION WIDTH-CV 12.7 % (11.5-14.5)
[2018-01-11 11:43] LABS: CALCIUM 8.9 mg/dL (8.4-10.2); CREATININE, serum 1.4 mg/dL (0.66-1.25); POTASSIUM 4.6 mmol/L (3.4-5.0)
== END ==
LOC: COL.LAB 11:14
PROVIDERS: Internal Medicine Interventional Cardiology
DX: I70.248 Atherosclerosis of native arteries of left leg with ulceration of other part of lower leg (principal); L97.921 Non-pressure chronic ulcer of unspecified part of left lower leg limited to breakdown of skin

== ENCOUNTER → 2018-03-19 | Outpatient (CLI) | payer MEDICARE ==
[2018-03-19 12:37] LABS: HEMATOCRIT 40.9 % (42.0-52.0); HEMOGLOBIN 13.4 g/dl (13.5-18.0); MEAN CELL VOLUME 86 fl (80.0-100.0); MEAN CORPUSCULAR HEMOGLOBIN 28 pg (27.0-31.0); MEAN CORPUSCULAR HGB CONC 33 g/dl (33.0-37.0); MEAN PLATELET VOLUME 9.7 fl (7.4-10.4); PLATELET COUNT 315 K/mm3 (130-400); RED BLOOD COUNT 4.77 M/mm3 (4.20-5.60); REDCELL DISTRIBUTION WIDTH-CV 12.4 % (11.5-14.5)
[2018-03-19 12:55] LABS: CREATININE, serum 1.59 mg/dL (0.66-1.25); POTASSIUM 4.5 mmol/L (3.4-5.0)
== END ==
LOC: COL.LAB 12:02
PROVIDERS: Internal Medicine Interventional Cardiology
DX: I99.8 Other disorder of circulatory system (principal)

== ENCOUNTER → 2018-04-05 | Outpatient (CLI) | payer MEDICARE | LOC: ZCOL.LAB 13:46 | DX: E11.621 Type 2 diabetes mellitus with foot ulcer (principal); L97.529 Non-pressure chronic ulcer of other part of left foot with unspecified severity ==

== ENCOUNTER 2018-04-09 11:59 | Inpatient (IN) | payer MEDICARE ==
[2008-09-24 00:02] VITALS: BP 162/90
[~2018-04-09] VITALS: Ht 188 cm; Wt 84.1 kg
[2018-04-09 12:55] LABS: BASO # 0.1 (0.0-0.2); BASO % 0.6 % (0.0-2.0); EOS # 0.4 (0.0-0.7); EOS % 4.9 % (0-4.0); GRAN # 5.8 (1.4-6.5); GRAN % 67.2 % (42.2-75.2); HEMOGLOBIN 10.5 g/dl (13.5-18.0); LYMPH # 1.4 (1.2-3.4); LYMPH % 16.7 % (20.0-51.0); MEAN CELL VOLUME 86 fl (80.0-100.0); MEAN CORPUSCULAR HEMOGLOBIN 29 pg (27.0-31.0); MEAN CORPUSCULAR HGB CONC 33 g/dl (33.0-37.0); MEAN PLATELET VOLUME 9.3 fl (7.4-10.4); MONO # 0.9 (0.1-0.6); MONO % 10.3 % (1.7-9.3); PLATELET COUNT 405 K/mm3 (130-400); RED BLOOD COUNT 3.67 M/mm3 (4.20-5.60); REDCELL DISTRIBUTION WIDTH-CV 12.4 % (11.5-14.5)
[2018-04-09 12:56] LABS: HEMATOCRIT 31.5 % (42.0-52.0)
[2018-04-09 13:09] LABS: CALCIUM 8.8 mg/dL (8.4-10.2); CREATININE, serum 2.07 mg/dL (0.66-1.25); POTASSIUM 4.6 mmol/L (3.4-5.0)
[2018-04-09 13:35] LABS: C-REACTIVE PROTEIN 16.2 mg/dL (0.0-0.9)
[2018-04-09] MEDS ORDERED: BACTRIM DS 8001 TAB PO (15:30)
[2018-04-09] MEDS ORDERED: NOVOLOG 100U100 U/M1 SQ (15:30)
[2018-04-09 17:10] VITALS: BP 91/57; PULSE 81; TEMP 98.5
[2018-04-09 20:49] VITALS: BP 107/85; PULSE 95; TEMP 98.2
[2018-04-10] VITALS (7 sets, daily range): BP systolic 97–140; BP diastolic 61–82; PULSE 56–82; TEMP 97.9–98.5
[2018-04-10 06:04] LABS: MEAN CELL VOLUME 89 fl (80.0-100.0); MEAN CORPUSCULAR HGB CONC 32 g/dl (33.0-37.0); MEAN PLATELET VOLUME 9.3 fl (7.4-10.4); PLATELET COUNT 366 K/mm3 (130-400); RED BLOOD COUNT 3.42 M/mm3 (4.20-5.60); REDCELL DISTRIBUTION WIDTH-CV 12.4 % (11.5-14.5)
[2018-04-10 06:05] LABS: HEMATOCRIT 30.5 % (42.0-52.0); HEMOGLOBIN 9.7 g/dl (13.5-18.0); MEAN CORPUSCULAR HEMOGLOBIN 28 pg (27.0-31.0)
[2018-04-10 06:12] LABS: CALCIUM 7.8 mg/dL (8.4-10.2); CREATININE, serum 1.66 mg/dL (0.66-1.25); MAGNESIUM 2.2 mg/dL (1.6-2.3); POTASSIUM 4.1 mmol/L (3.4-5.0)
[2018-04-10 07:38] LABS: BAND 2 % (0-10); EOSINOPHIL 5 % (0-4); LYMPHOCYTE 32 % (20.0-51.0); NEUTROPHILS 57 % (42.0-75.2); PLATELET ESTIMATE NORMAL (NORMAL)
[2018-04-11] VITALS (12 sets, daily range): BP systolic 89–123; BP diastolic 63–79; PULSE 66–75; TEMP 97.4–98.5
[2018-04-11 09:39] LABS: CALCIUM 8.1 mg/dL (8.4-10.2); CREATININE, serum 1.37 mg/dL (0.66-1.25); POTASSIUM 5.2 mmol/L (3.4-5.0)
[2018-04-11 15:53] LABS: POTASSIUM 4.2 mmol/L (3.4-5.0)
[2018-04-11 16:09] LABS: VANCOMYCIN TROUGH 16.01 ug/mL (7.00-20.00)
[2018-04-12] VITALS (7 sets, daily range): BP systolic 102–127; BP diastolic 64–90; PULSE 73–82; TEMP 97.3–98.3
[2018-04-12 06:11] LABS: BASO % 0.5 % (0.0-2.0); EOS # 0.5 (0.0-0.7); EOS % 7.5 % (0-4.0); GRAN # 3.3 (1.4-6.5); GRAN % 53.1 % (42.2-75.2); LYMPH # 1.7 (1.2-3.4); LYMPH % 28.2 % (20.0-51.0); MEAN CELL VOLUME 90 fl (80.0-100.0); MEAN CORPUSCULAR HGB CONC 31 g/dl (33.0-37.0); MEAN PLATELET VOLUME 9.3 fl (7.4-10.4); MONO # 0.6 (0.1-0.6); MONO % 10.4 % (1.7-9.3); PLATELET COUNT 404 K/mm3 (130-400); RED BLOOD COUNT 3.35 M/mm3 (4.20-5.60); REDCELL DISTRIBUTION WIDTH-CV 12.1 % (11.5-14.5)
[2018-04-12 06:19] LABS: CREATININE, serum 1.4 mg/dL (0.66-1.25); POTASSIUM 4.3 mmol/L (3.4-5.0)
[2018-04-12 06:22] LABS: HEMOGLOBIN 9.3 g/dl (13.5-18.0); MEAN CORPUSCULAR HEMOGLOBIN 28 pg (27.0-31.0)
[2018-04-12] MEDS ORDERED: LANTUS SOLOS100 U/ML SQ (11:42)
[2018-04-13 03:26] VITALS: BP 136/89; PULSE 68; TEMP 98.3
[2018-04-13 05:45] LABS: BASO % 0.6 % (0.0-2.0); EOS # 0.4 (0.0-0.7); EOS % 6.2 % (0-4.0); GRAN # 3.4 (1.4-6.5); GRAN % 52.7 % (42.2-75.2); LYMPH % 30.4 % (20.0-51.0); MEAN CELL VOLUME 87 fl (80.0-100.0); MEAN CORPUSCULAR HGB CONC 32 g/dl (33.0-37.0); MEAN PLATELET VOLUME 9.1 fl (7.4-10.4); MONO # 0.6 (0.1-0.6); MONO % 9.8 % (1.7-9.3); PLATELET COUNT 388 K/mm3 (130-400); RED BLOOD COUNT 3.37 M/mm3 (4.20-5.60); REDCELL DISTRIBUTION WIDTH-CV 12.2 % (11.5-14.5)
[2018-04-13 05:48] LABS: HEMATOCRIT 29.2 % (42.0-52.0); HEMOGLOBIN 9.4 g/dl (13.5-18.0); MEAN CORPUSCULAR HEMOGLOBIN 28 pg (27.0-31.0)
[2018-04-13 06:01] LABS: CALCIUM 8.3 mg/dL (8.4-10.2); CREATININE, serum 1.32 mg/dL (0.66-1.25); POTASSIUM 4.4 mmol/L (3.4-5.0)
[2018-04-13 08:00] VITALS: BP 117/73; PULSE 69; TEMP 97.6
[2018-04-13 11:36] VITALS: BP 113/74; PULSE 73; TEMP 97.5
[2018-04-13 15:54] VITALS: BP 157/87; PULSE 70; TEMP 97.5
[2018-04-13 20:00] VITALS: BP 124/81; PULSE 74; TEMP 97.7
[2018-04-14] VITALS (12 sets, daily range): BP systolic 101–143; BP diastolic 65–88; PULSE 64–79; TEMP 97.4–98.4
[2018-04-14 07:19] LABS: BASO # 0.1 (0.0-0.2); BASO % 0.6 % (0.0-2.0); EOS # 0.4 (0.0-0.7); EOS % 5.4 % (0-4.0); GRAN # 4.9 (1.4-6.5); GRAN % 62.6 % (42.2-75.2); LYMPH # 1.9 (1.2-3.4); LYMPH % 23.7 % (20.0-51.0); MEAN CELL VOLUME 88 fl (80.0-100.0); MEAN CORPUSCULAR HGB CONC 32 g/dl (33.0-37.0); MONO # 0.6 (0.1-0.6); MONO % 7.3 % (1.7-9.3); PLATELET COUNT 421 K/mm3 (130-400); RED BLOOD COUNT 3.49 M/mm3 (4.20-5.60)
[2018-04-14 07:23] LABS: HEMATOCRIT 30.7 % (42.0-52.0); HEMOGLOBIN 9.9 g/dl (13.5-18.0); MEAN CORPUSCULAR HEMOGLOBIN 28 pg (27.0-31.0)
[2018-04-14 07:30] LABS: CALCIUM 8.2 mg/dL (8.4-10.2); CREATININE, serum 1.35 mg/dL (0.66-1.25); POTASSIUM 4.2 mmol/L (3.4-5.0)
[2018-04-15 00:46] VITALS: BP 121/80; PULSE 74; TEMP 98.1
[2018-04-15 04:00] VITALS: BP 117/60; PULSE 71; TEMP 97.8
[2018-04-15 06:18] LABS: BASO # 0.1 (0.0-0.2); BASO % 0.9 % (0.0-2.0); EOS # 0.4 (0.0-0.7); EOS % 6.3 % (0-4.0); GRAN % 56.3 % (42.2-75.2); LYMPH % 27.9 % (20.0-51.0); MEAN CELL VOLUME 86 fl (80.0-100.0); MEAN CORPUSCULAR HGB CONC 33 g/dl (33.0-37.0); MEAN PLATELET VOLUME 8.8 fl (7.4-10.4); MONO # 0.6 (0.1-0.6); MONO % 8.3 % (1.7-9.3); PLATELET COUNT 410 K/mm3 (130-400); RED BLOOD COUNT 3.51 M/mm3 (4.20-5.60); REDCELL DISTRIBUTION WIDTH-CV 12.1 % (11.5-14.5)
[2018-04-15 06:28] LABS: CALCIUM 8.2 mg/dL (8.4-10.2); CREATININE, serum 1.42 mg/dL (0.66-1.25); POTASSIUM 4.2 mmol/L (3.4-5.0)
[2018-04-15 06:29] LABS: HEMOGLOBIN 9.9 g/dl (13.5-18.0); MEAN CORPUSCULAR HEMOGLOBIN 28 pg (27.0-31.0)
[2018-04-15 07:38] VITALS: BP 123/75; PULSE 64; TEMP 98.3
[2018-04-15 11:34] VITALS: BP 105/60; PULSE 89; TEMP 97.9
[2018-04-15 15:52] VITALS: BP 139/81; PULSE 88; TEMP 97.8
[2018-04-15] MEDS ORDERED: CIPRO 500MG TA500 MG PO (15:52)
[2018-04-15] MEDS ORDERED: LANTUS100 U/ML SQ (15:53)
== END 2018-04-15 17:35 | disposition home or self-care (01) | DRG 617 ==
LOC: COL.ER 11:59 → MEDICAL 14:15 → SURG 14:15
PROVIDERS: Emergency Medicine; Family Medicine; Internal Medicine; Nurse Practitioner Family; Orthopaedic Surgery; Physician Assistant
PROC: 0Y6Y0Z0 Detachment at Left 5th Toe, Complete, Open Approach (ICD-10-PCS; principal; 2018-04-11 07:30)
PROC: 0HDNXZZ Extraction of Left Foot Skin, External Approach (ICD-10-PCS; 2018-04-14 08:00)
DX: E10.69 Type 1 diabetes mellitus with other specified complication (principal); M86.172 Other acute osteomyelitis, left ankle and foot; N17.9 Acute kidney failure, unspecified; E10.22 Type 1 diabetes mellitus with diabetic chronic kidney disease; E10.621 Type 1 diabetes mellitus with foot ulcer; L97.523 Non-pressure chronic ulcer of other part of left foot with necrosis of muscle; Z89.511 Acquired absence of right leg below knee; N18.3 Chronic kidney disease, stage 3 (moderate); Z79.4 Long term (current) use of insulin; Z87.891 Personal history of nicotine dependence; B95.61 Methicillin susceptible Staphylococcus aureus infection as the cause of diseases classified elsewhere; B96.89 Other specified bacterial agents as the cause of diseases classified elsewhere; B95.2 Enterococcus as the cause of diseases classified elsewhere; E87.5 Hyperkalemia; E10.65 Type 1 diabetes mellitus with hyperglycemia; E10.649 Type 1 diabetes mellitus with hypoglycemia without coma
CPT/HCPCS: 99222-AI; 99232-AI; 99239; J0690; J0696; J1644; J1815; J2250; J2405; J2704; J3010; J3370; J7030; J7040; J7050

== ENCOUNTER → 2018-08-23 | Outpatient (CLI) | payer MEDICARE | LOC: ZCOL.LAB 14:40 | DX: E10.621 Type 1 diabetes mellitus with foot ulcer (principal); L03.119 Cellulitis of unspecified part of limb ==

== ENCOUNTER 2018-10-21 07:34 | Emergency (ER) | payer MEDICARE ==
[2008-09-24 00:02] VITALS: BP 162/90
[~2018-10-21] VITALS: Ht 188 cm; Wt 86.4 kg
[2018-10-21 07:37] VITALS: TEMP 97.8
[2018-10-21 07:56] LABS: BASO # 0.1 (0.0-0.2); BASO % 1.4 % (0.0-2.0); EOS # 0.7 (0.0-0.7); EOS % 10.9 % (0-4.0); GRAN # 3.3 (1.4-6.5); GRAN % 52.6 % (42.2-75.2); HEMATOCRIT 39.6 % (42.0-52.0); HEMOGLOBIN 12.9 g/dl (13.5-18.0); LYMPH # 1.6 (1.2-3.4); LYMPH % 25.6 % (20.0-51.0); MEAN CELL VOLUME 89 fl (80.0-100.0); MEAN CORPUSCULAR HEMOGLOBIN 29 pg (27.0-31.0); MEAN CORPUSCULAR HGB CONC 33 g/dl (33.0-37.0); MEAN PLATELET VOLUME 9.7 fl (7.4-10.4); MONO # 0.6 (0.1-0.6); MONO % 9.3 % (1.7-9.3); PLATELET COUNT 279 K/mm3 (130-400); RED BLOOD COUNT 4.45 M/mm3 (4.20-5.60); REDCELL DISTRIBUTION WIDTH-CV 13.2 % (11.5-14.5)
[2018-10-21 08:06] LABS: CALCIUM 8.9 mg/dL (8.4-10.2); CREATININE, serum 1.97 (0.66-1.25); POTASSIUM 4.2 mmol/L (3.4-5.0)
[2018-10-21 08:58] VITALS: BP 107/77; PULSE 83
== END 2018-10-21 09:00 | disposition home or self-care (01) ==
LOC: COL.ER 07:34
PROVIDERS: Emergency Medicine
DX: E11.649 Type 2 diabetes mellitus with hypoglycemia without coma (principal); Z79.4 Long term (current) use of insulin; F17.210 Nicotine dependence, cigarettes, uncomplicated

== ENCOUNTER → 2018-12-04 | Outpatient (CLI) | payer MEDICARE ==
[2018-12-05 17:09] LABS: CREATININE OTHER SOURCE 57 mg/dL (()); URINE MICROALBUMIN <0.5 mg/dL (0.0-1.7)
== END ==
LOC: ZCOL.LAB 17:10
PROVIDERS: Family Medicine
DX: E10.9 Type 1 diabetes mellitus without complications (principal)

== ENCOUNTER 2019-03-28 05:37 | Emergency (ER) | payer MEDICARE ==
[~2019-03-28] VITALS: Ht 188 cm; Wt 88.6 kg
[2019-03-28 06:11] LABS: BASO % 0.3 % (0.0-2.0); EOS # 0.1 (0.0-0.7); GRAN # 9.9 (1.4-6.5); HEMATOCRIT 38.2 % (42.0-52.0); HEMOGLOBIN 12.4 g/dl (13.5-18.0); LYMPH # 0.9 (1.2-3.4); MEAN CELL VOLUME 88 fl (80.0-100.0); MEAN CORPUSCULAR HEMOGLOBIN 28 pg (27.0-31.0); MEAN CORPUSCULAR HGB CONC 33 g/dl (33.0-37.0); MONO # 0.8 (0.1-0.6); MONO % 6.4 % (1.7-9.3); PLATELET COUNT 267 K/mm3 (130-400); RED BLOOD COUNT 4.36 M/mm3 (4.20-5.60); REDCELL DISTRIBUTION WIDTH-CV 12.6 % (11.5-14.5)
[2019-03-28] MEDS ORDERED: LANTUS100 U/ML SQ (06:13)
[2019-03-28] MEDS ORDERED: NOVOLOG 100U100 U/M1 SQ (06:17)
[2019-03-28 06:20] LABS: ALANINE AMINOTRANSFERASE < 6 U/L (21-72); ALBUMIN 3.8 gm/dL (3.5-5.0); ALKALINE PHOSPHATASE 108 U/L (50-136); ANION GAP 8 mmol/L (7-16); AST,SGOT 19 U/L (15-37); BILIRUBIN,TOTAL 0.3 mg/dL (0.0-1.0); BLOOD UREA NITROGEN 24 mg/dL (9-20); CALCIUM 8.4 mg/dL (8.4-10.2); CARBON DIOXIDE 28 mmol/L (22-30); CHLORIDE 101 mmol/L (98-107); CREATININE, serum 1.59 (0.66-1.25); GLUCOSE 144 mg/dL (74-106); POTASSIUM 3.8 mmol/L (3.4-5.0); SODIUM 137 mmol/L (137-145); TOTAL PROTEIN 7.2 gm/dL (6.4-8.2)
[2019-03-28] MEDS ORDERED: DOXYCYCLINE HY100 MG PO (06:58)
[2019-03-28 07:09] LABS: COLLECTION METHOD CLEAN CATCH
[2019-03-28 07:17] LABS: MUCOUS Present /lpf; PH 5 (5-8); SQUAMOUS EPITHELIAL None Seen /hpf; URINE APPEARANCE Clear; URINE BACTERIA None Seen /hpf; URINE BILIRUBIN Negative (NEGATIVE); URINE BLOOD 1+ (NEGATIVE); URINE COLOR Straw; URINE GLUCOSE 3+ (NEGATIVE); URINE KETONE 1+ (NEGATIVE); URINE LEUKOCYTE ESTERASE Negative (NEGATIVE); URINE NITRATE Negative (NEGATIVE); URINE PROTEIN(semi-quant) Negative (NEGATIVE); URINE RBC 0-2 /hpf; URINE UROBILINOGEN Negative (NEGATIVE); URINE WBC 0-2 /hpf
[2019-03-28 07:19] VITALS: TEMP 97.6
[2019-03-28 09:05] VITALS: BP 136/97; PULSE 95
== END 2019-03-28 09:25 | disposition home or self-care (01) ==
LOC: COL.ER 05:37
PROVIDERS: Emergency Medicine
DX: E10.649 Type 1 diabetes mellitus with hypoglycemia without coma (principal); E10.22 Type 1 diabetes mellitus with diabetic chronic kidney disease; E10.621 Type 1 diabetes mellitus with foot ulcer; N18.9 Chronic kidney disease, unspecified; L97.529 Non-pressure chronic ulcer of other part of left foot with unspecified severity; Z88.0 Allergy status to penicillin; Z87.891 Personal history of nicotine dependence
CPT/HCPCS: J0780; J1200; J2405; J7030

== ENCOUNTER 2019-04-16 20:12 | Emergency (ER) | payer MEDICARE ==
[2008-09-24 00:02] VITALS: BP 162/90
[~2019-04-16] VITALS: Ht 188 cm; Wt 88.6 kg
[~2019-04-16 20:12] MED LIST changes: +DOXYCYCLINE HY100 MG PO
[2019-04-16 20:20] VITALS: BP 137/79; TEMP 97.3
[2019-04-16 20:45] LABS: BASO # 0.1 (0.0-0.2); BASO % 0.8 % (0.0-2.0); EOS # 0.4 (0.0-0.7); EOS % 2.9 % (0-4.0); GRAN # 10.1 (1.4-6.5); GRAN % 73.6 % (42.2-75.2); HEMATOCRIT 43.1 % (42.0-52.0); HEMOGLOBIN 14.2 g/dl (13.5-18.0); LYMPH # 1.9 (1.2-3.4); LYMPH % 14.1 % (20.0-51.0); MEAN CELL VOLUME 88 fl (80.0-100.0); MEAN CORPUSCULAR HEMOGLOBIN 29 pg (27.0-31.0); MEAN CORPUSCULAR HGB CONC 33 g/dl (33.0-37.0); MEAN PLATELET VOLUME 10.4 fl (7.4-10.4); MONO # 1.2 (0.1-0.6); MONO % 8.4 % (1.7-9.3); PLATELET COUNT 303 K/mm3 (130-400); RED BLOOD COUNT 4.92 M/mm3 (4.20-5.60); REDCELL DISTRIBUTION WIDTH-CV 12.9 % (11.5-14.5)
[2019-04-16 20:51] LABS: CALCIUM 9.2 mg/dL (8.4-10.2); CREATININE, serum 2.22 (0.66-1.25); POTASSIUM 4.1 mmol/L (3.4-5.0)
[2019-04-16 22:05] VITALS: PULSE 84
== END 2019-04-16 22:05 | disposition home or self-care (01) ==
LOC: COL.ER 20:12
PROVIDERS: Emergency Medicine
DX: E10.649 Type 1 diabetes mellitus with hypoglycemia without coma (principal)

== ENCOUNTER 2019-07-25 13:23 | Emergency (ER) | payer MEDICARE ==
[2008-09-24 00:02] VITALS: BP 162/90
[~2019-07-25] VITALS: Ht 188 cm; Wt 89.5 kg
[2019-07-25 13:24] VITALS: TEMP 97.9
[2019-07-25 15:03] VITALS: BP 159/102; PULSE 69
== END 2019-07-25 15:03 | disposition home or self-care (01) ==
LOC: COL.ER 13:23
DX: E11.649 Type 2 diabetes mellitus with hypoglycemia without coma (principal); R03.0 Elevated blood-pressure reading, without diagnosis of hypertension; I10 Essential (primary) hypertension; Z87.891 Personal history of nicotine dependence; Z88.0 Allergy status to penicillin; Z79.4 Long term (current) use of insulin

== ENCOUNTER → 2020-01-01 | Outpatient (CLI) | payer MEDICARE | LOC: ZCOL.LAB 09:28 | DX: E11.9 Type 2 diabetes mellitus without complications (principal); M86.9 Osteomyelitis, unspecified; Z89.422 Acquired absence of other left toe(s) ==

== ENCOUNTER → 2020-01-01 | Outpatient (CLI) | payer MEDICARE ==
[2020-01-01 10:24] LABS: BASO % 0.4 % (0.0-2.0); EOS # 0.4 (0.0-0.7); EOS % 4.6 % (0-4.0); GRAN # 5.6 (1.4-6.5); GRAN % 62.3 % (42.2-75.2); HEMATOCRIT 39.5 % (42.0-52.0); LYMPH # 1.9 (1.2-3.4); LYMPH % 20.6 % (20.0-51.0); MEAN CELL VOLUME 88 fl (80.0-100.0); MEAN CORPUSCULAR HEMOGLOBIN 29 pg (27.0-31.0); MEAN CORPUSCULAR HGB CONC 33 g/dl (33.0-37.0); MONO # 1.1 (0.1-0.6); MONO % 11.9 % (1.7-9.3); PLATELET COUNT 352 K/mm3 (130-400); RED BLOOD COUNT 4.49 M/mm3 (4.20-5.60); REDCELL DISTRIBUTION WIDTH-CV 12.2 % (11.5-14.5)
[2020-01-01 10:27] LABS: BILIRUBIN,TOTAL 0.7 mg/dL (0.0-1.0); C-REACTIVE PROTEIN 7.7 mg/dL (0.0-0.9); CALCIUM 9.4 mg/dL (8.4-10.2); CREATININE, serum 1.72 (0.66-1.25); POTASSIUM 4.4 mmol/L (3.4-5.0); TOTAL PROTEIN 7.9 gm/dL (6.4-8.2)
[2020-01-01 10:45] LABS: ERYTHROCYTE SEDIMENTATION RATE 61 mm/hr (0-15)
== END ==
LOC: COL.LAB 09:35
PROVIDERS: Nurse Practitioner
DX: E11.9 Type 2 diabetes mellitus without complications (principal)

== ENCOUNTER → 2020-01-07 | Outpatient (CLI) | payer MEDICARE ==
[2020-01-07 09:14] LABS: BASO # 0.1 (0.0-0.2); BASO % 0.7 % (0.0-2.0); EOS # 0.4 (0.0-0.7); EOS % 4.9 % (0-4.0); GRAN % 64.4 % (42.2-75.2); HEMOGLOBIN 12.4 g/dl (13.5-18.0); LYMPH # 1.4 (1.2-3.4); LYMPH % 18.2 % (20.0-51.0); MEAN CELL VOLUME 87 fl (80.0-100.0); MEAN CORPUSCULAR HEMOGLOBIN 29 pg (27.0-31.0); MEAN CORPUSCULAR HGB CONC 33 g/dl (33.0-37.0); MEAN PLATELET VOLUME 9.7 fl (7.4-10.4); MONO # 0.9 (0.1-0.6); MONO % 11.4 % (1.7-9.3); PLATELET COUNT 385 K/mm3 (130-400); RED BLOOD COUNT 4.35 M/mm3 (4.20-5.60); REDCELL DISTRIBUTION WIDTH-CV 11.9 % (11.5-14.5)
[2020-01-07 09:24] LABS: ALBUMIN 3.9 gm/dL (3.5-5.0); BILIRUBIN,TOTAL 0.6 mg/dL (0.0-1.0); CALCIUM 8.9 mg/dL (8.4-10.2); CREATININE, serum 1.93 (0.66-1.25); POTASSIUM 4.5 mmol/L (3.4-5.0); TOTAL PROTEIN 7.9 gm/dL (6.4-8.2)
[2020-01-07 09:35] LABS: C-REACTIVE PROTEIN 12.2 mg/dL (0.0-0.9)
[2020-01-07 09:39] LABS: ERYTHROCYTE SEDIMENTATION RATE 86 mm/hr (0-15)
== END ==
LOC: COL.RAD 08:42
PROVIDERS: Nurse Practitioner
DX: L98.8 Other specified disorders of the skin and subcutaneous tissue (principal); T14.8XXA Other injury of unspecified body region, initial encounter; E11.9 Type 2 diabetes mellitus without complications; M86.8X7 Other osteomyelitis, ankle and foot

== ENCOUNTER 2020-01-08 10:17 | Inpatient (IN) | payer MEDICARE, OTHER ==
[~2020-01-08] VITALS: Ht 188 cm; Wt 90.6 kg
[2020-01-13] VITALS (13 sets, daily range): BP systolic 84–135; BP diastolic 51–90; PULSE 75–97; TEMP 97.9–98.2
[2020-01-13] MEDS ORDERED: LANTUS100 U/ML SQ (09:46)
[2020-01-13] MEDS ORDERED: NOVOLOG 100U100 U/M1 SQ (09:47)
[2020-01-13] MEDS ORDERED: ASPIRIN 32325 MG/TAB PO (09:47)
[2020-01-13] MEDS ORDERED: ZOCOR5 MG PO (09:48)
[2020-01-13] MEDS ORDERED: CIPRO 500MG TA500 MG PO (09:49)
[2020-01-13] MEDS ORDERED: PRINIVIL2.5 MG PO (09:49)
--- NOTE | 2020-01-13 14:25 | NUR ---
To room from PACU via bed. Denies pain at this time. Unable to lift legs at this time. 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 Patient denies needs at this time.
--- NOTE | 2020-01-13 15:55 | NUR ---
LIZETTE met with patient to complete initial intake. The patient lives [place] with a [place] address. The patient lives with his parents. The patient has wheelchair and no other DME. The patient does not have a PCP. A list of [place] physicians was provided. The patient receives medications [facility]. The patient does not have a DPOA-HC and was not interested in a form. The patient is not and has no children. He states his parents would make medical decisions for him if needed. The patient may be needing post acute rehab and was interested in sending referral to [facility]. LIZETTE informed Allison IPR Director. LIZETTE will continue to follow.
--- NOTE | 2020-01-13 15:57 | NUR ---
Lying in bed with eyes closed. Opens eyes when name called out. Denies pain. Is able to move left lower extremity. Denies additional needs at this time.
--- NOTE | 2020-01-13 16:06 | NUR ---
The patient has Medicare. SW discussed applying for Medicaid. The patient was agreeable. LIZETTE contacted Pamela Rice, Financial Counselor.
--- NOTE | 2020-01-13 16:28 | NUR ---
Rates pain 7-8/10 in left leg. Administered [place] as prescribed. Patient has left leg elevated and ice pack to site. Denies additional needs at this time.
--- NOTE | 2020-01-13 17:26 | NUR ---
Continues to rate pain 8-9/10 in left leg. Requests pain medication. Administered Tramadol as prescribed. Dressing to left leg CDI, brace in place. Denies additional needs at this time.
--- NOTE | 2020-01-13 18:37 | NUR ---
Continues to rate pain in left leg 9/10 and would like pain medication. Will administer Roxicodone as prescribed.
--- NOTE | 2020-01-13 21:30 | NUR ---
Pt. sitting up in bed at this time. Pt. is A&OX3, assessment complete. IV to lt. wrist patent, IV fluids infusing per orders. Pt. reports pain at a 7 on pain scale, gave pain meds per orders. Dressing to Lt. BKA CDI. Pt. denies further needs, call light within reach.
[2020-01-14] VITALS (7 sets, daily range): BP systolic 122–144; BP diastolic 75–90; PULSE 84–96; TEMP 97.9–98.9
--- NOTE | 2020-01-14 09:26 | NUR ---
PT EATING BREAKFAST. DENIES N/V, PAIN CONTROLLED WITH PO MEDS THIS AM. VSS, PT ASSISTED WITH PERSONAL CARES THIS AM. DRESSING TO LEFT BKA CDI WITH BRACE INPLACE.
--- NOTE | 2020-01-14 14:05 | NUR ---
NOTIFIED DR. PRAJAPATI OF PT BLOOD GLUCOSE AND CONSULTED HOSPITALIST FOR GLYCEMIC CONTROL. RECHECKED PT AND NOW AT 95.
--- NOTE | 2020-01-14 14:16 | NUR ---
Hospitalist was consulted for the patient. PT is recommending home with family for the patient. Allison, IPR Director cannot take the patient due to being too functional. LIZETTE met with the patient to revisit the discharge plan. The patient chose Dr. Soares for his PCP. If Dr. Soares was not taking new patient's he said to set up an appointment with anyone at [facility] that was taking new patients. The patient plans to return home with his family. The patient has support from his parents and brother, Jakob. Jakob assist with picking up medications, if needed. The patient did drive up until this hospitalization. He is very independent and uses he wheelchair to get places if he needs to. The patient states that his brother Jakob is a big help when he needs anything. LIZETTE contacted the patient's mother, Radha. She states he has support at home and assist the patient with his diabetes as needed. Radha states that sometimes at night the patient's blood sugar levels drop and they help the patient at those times. Radha states that Jakob can transport the patient home at discharge. LIZETTE contacted Dr. Soares's office and left a message with his staff. Will continue to follow.
--- NOTE | 2020-01-14 19:03 | NUR ---
REPORT TO REGINALD MADISON.
--- NOTE | 2020-01-15 03:27 | NUR ---
Patient has rested off and on throughout the night. Calls and requests pain medication at 1930. PRN Union administered and effective. Patient called again at 2330 for pain medication. PRN Union administered and effective. Patient has had adequate fluid intake. Fluids INT'd. Knee immobilizer on to left lower extremity. Randall wrap to left stump is CDI. Will continue to monitor patient.
[2020-01-15 03:47] VITALS: BP 128/89; PULSE 89; TEMP 98.6
--- NOTE | 2020-01-15 07:38 | NUR ---
Sitting up in bed. Dr. Houston in and changed dressing to left BKA. Patient would like pain medication when he is available to have it. Patient hopes to go home today. Denies additional needs at this time.
[2020-01-15 07:41] VITALS: BP 148/81; PULSE 95; TEMP 97.8
--- NOTE | 2020-01-15 07:51 | NUR ---
[place] administered as prescribed.
--- NOTE | 2020-01-15 10:49 | NUR ---
LIZETTE contacted Dr. Thomas distance learning unit leader. Dr. Soares is not currently taking new patients at this time. Dr. Serrano is talking new patients and an appointment was set up on Sunday, 01/18 at 1130. The patient was agreeable to this date and time. LIZETTE collaborated the above information with the patient's nurse.
[2020-01-15 12:22] VITALS: BP 129/75; PULSE 78; TEMP 98
[2020-01-15] MEDS ORDERED: NOVOLOG 100U100 U/M1 SQ (12:24)
--- NOTE | 2020-01-15 12:36 | NUR ---
Patient lying in bed watching TV. Reviewed sliding scale for Novolog when the patient goes home and provided written instructions for the sliding scale. Explain that we are waiting on Dr. Houston to provide final discahrge instructions for him to go home. Patient denies further needs at this time.
[2020-01-15] MEDS ORDERED: NORCO 325 MG-7.1 TAB PO (13:26)
--- NOTE | 2020-01-15 16:01 | NUR ---
The patient discharged home today, 01/14 with family to assist with any needs. SW contacted the patient's mother, Radha and she had no concerns for discharge. LIZETTE met with the patient and he did not have any questions or concerns about discharge, he was ready to go home. There are no additional needs at this time.
== END 2020-01-15 15:00 | disposition home or self-care (01) | DRG 617 ==
LOC: SURG 01-13 08:11 → INPTSU 01-13 08:11 → SDCO 01-13 14:00 → EDSTATUS 01-13 14:15 → SURG 01-13 14:25
PROVIDERS: ADMIT Orthopaedic Surgery
PROC: 0Y6J0Z3 Detachment at Left Lower Leg, Low, Open Approach (ICD-10-PCS; principal; 2020-01-13 14:00)
DX: E10.69 Type 1 diabetes mellitus with other specified complication (principal); M86.8X7 Other osteomyelitis, ankle and foot; E10.22 Type 1 diabetes mellitus with diabetic chronic kidney disease; E10.649 Type 1 diabetes mellitus with hypoglycemia without coma; N18.3 Chronic kidney disease, stage 3 (moderate); Z88.0 Allergy status to penicillin
CPT/HCPCS: 99222; 99232-AI; J1610; J1650; J1815; J2250; J2270; J2704; J7030; L1830

== ENCOUNTER 2020-02-08 08:31 | Emergency (ER) | payer MEDICARE ==
[2008-09-24 00:02] VITALS: BP 162/90
[~2020-02-08] VITALS: Ht 188 cm; Wt 88.6 kg
[~2020-02-08 08:31] MED LIST changes: +ZOCOR5 MG PO
[2020-02-08 08:35] VITALS: TEMP 97.9
[2020-02-08 09:52] LABS: BASO # 0.1 (0.0-0.2); BASO % 0.8 % (0.0-2.0); EOS # 0.7 (0.0-0.7); EOS % 6.5 % (0-4.0); GRAN # 6.3 (1.4-6.5); GRAN % 61.3 % (42.2-75.2); HEMOGLOBIN 12.3 g/dl (13.5-18.0); LYMPH # 2.1 (1.2-3.4); LYMPH % 20.3 % (20.0-51.0); MEAN CELL VOLUME 87 fl (80.0-100.0); MEAN CORPUSCULAR HEMOGLOBIN 28 pg (27.0-31.0); MEAN CORPUSCULAR HGB CONC 32 g/dl (33.0-37.0); MEAN PLATELET VOLUME 10.1 fl (7.4-10.4); MONO # 1.1 (0.1-0.6); MONO % 10.9 % (1.7-9.3); PLATELET COUNT 286 K/mm3 (130-400); RED BLOOD COUNT 4.37 M/mm3 (4.20-5.60); REDCELL DISTRIBUTION WIDTH-CV 13.1 % (11.5-14.5)
[2020-02-08 09:55] LABS: ALBUMIN 4.2 gm/dL (3.5-5.0); BILIRUBIN,TOTAL 0.6 mg/dL (0.0-1.0); C-REACTIVE PROTEIN 3.8 mg/dL (0.0-0.9); CALCIUM 9.1 mg/dL (8.4-10.2); CREATININE, serum 1.8 (0.66-1.25); POTASSIUM 4.4 mmol/L (3.4-5.0); TOTAL PROTEIN 7.9 gm/dL (6.4-8.2)
[2020-02-08] MEDS ORDERED: CEPHALEXIN500 M1 PO (10:24)
[2020-02-08] MEDS ORDERED: NORCO 325 MG-51 TAB PO (10:25)
[2020-02-08 10:40] VITALS: BP 147/93; PULSE 89
== END 2020-02-08 10:50 | disposition home or self-care (01) ==
LOC: COL.ER 08:31
PROVIDERS: Emergency Medicine
DX: M79.662 Pain in left lower leg (principal); E10.22 Type 1 diabetes mellitus with diabetic chronic kidney disease; N18.9 Chronic kidney disease, unspecified; Z87.891 Personal history of nicotine dependence
CPT/HCPCS: J2270; J7030

== ENCOUNTER 2020-02-10 10:03 | Day surgery (SDC) | payer MEDICARE ==
[2008-09-24 00:02] VITALS: BP 162/90
[2020-02-10] VITALS (9 sets, daily range): BP systolic 99–129; BP diastolic 49–83; PULSE 74–105; TEMP 98.3–98.9
[~2020-02-10] VITALS: Ht 188 cm; Wt 85.5 kg
[2020-02-10] MEDS ORDERED: LANTUS SOLOS100 U/ML SQ (10:29)
[2020-02-10] MEDS ORDERED: NOVOLOG FLEX100 U/ML SQ (10:29)
--- NOTE | 2020-02-10 11:00 | NUR ---
Patient rounding complete. Patient denies any needs at this time.
--- NOTE | 2020-02-10 11:24 | NUR ---
Félix Dong CRNA is called regarding BP of 99/59, HR 105 bpm. TORB received for 500mL NS bolus pre-op.
--- NOTE | 2020-02-10 11:30 | NUR ---
Patient rounding complete. Patient denies any needs at this time.
--- NOTE | 2020-02-10 12:02 | NUR ---
500ML IVF bolus of NS completed at this time.
--- NOTE | 2020-02-10 12:08 | NUR ---
Patient rounding complete. Patient denies needs at this time.
--- NOTE | 2020-02-10 14:26 | NUR ---
Patient rounding is complete. Patient is sleeping.
--- NOTE | 2020-02-10 15:07 | NUR ---
Patient is taken to the PACU at this time by WOJCIECH Almonte for a block. His belongings (backpack, patient belonging bag x1, prosthetic leg, and personal wheelchair) are labeled with patient stickers and taken to the PACU.
--- NOTE | 2020-02-10 17:32 | NUR ---
Patient to room from PACU via cart. Patient transfers self from cart to bed. Patient is alert. Sitting up in bed. Denies pain. Dressing to left leg CDI.Ice pack to left leg. Hemovac drain compressed, no drainage noted. Patient oriented to room.
--- NOTE | 2020-02-10 18:36 | NUR ---
Sitting up in bed with eyes open watching TV. 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 Patient denies any additional needs at this time.
--- NOTE | 2020-02-10 20:30 | NUR ---
Resting in bed. Assessment complete. Right base crackle otherwise clear. Heart sounds normal. Bowels active x4. Radial pulses present. Left BKA dressing CDI with Hemovac drain in place. Reddish drainage present. Denies pain at this time. Denies needs. IV left wrist infusing without complications.
--- NOTE | 2020-02-10 22:15 | NUR ---
Resting in bed. Denies pain. Call light in reach.
[2020-02-11 04:18] VITALS: BP 124/83; PULSE 78; TEMP 97.8
--- NOTE | 2020-02-11 06:22 | NUR ---
Patient had uneventful night. Minimal drainage present in hemovac. Denies needs this AM. Call light in reach.
[2020-02-11 07:08] VITALS: BP 127/76; PULSE 73; TEMP 98.1
--- NOTE | 2020-02-11 07:09 | NUR ---
Report given to GRICELDA Pena
--- NOTE | 2020-02-11 07:11 | NUR ---
Dr Houston here to see patient.
--- NOTE | 2020-02-11 10:00 | NUR ---
Patient alert and oriented, answers questions appropriately. See assessment. RLE with gauze and 4x4 and immobilizer, CDI. NWB. Continues with mild sensation to LLE, has been this way since surgery r/t block. No c/o at this time.
[2020-02-11 11:19] VITALS: BP 142/79; PULSE 81; TEMP 97.8
--- NOTE | 2020-02-11 12:33 | NUR ---
Initial visit; Patient thanked Manager Med Surg for looking in on him and wishing him well and God's blessings.
--- NOTE | 2020-02-11 14:47 | NUR ---
Discharge instructions reveiwed with patient, verbalized understanding. Discharged via wheelchair to auto/home with family at 1445.
== END 2020-02-11 14:40 | disposition home or self-care (01) ==
LOC: SDCO 10:03 → SURG 15:45 → EDSTATUS 15:45 → SDCO 15:45 → SURG 17:24 → SDCO 02-11 14:40
DX: T87.81 Dehiscence of amputation stump (principal); E11.9 Type 2 diabetes mellitus without complications; Z79.4 Long term (current) use of insulin; Z89.512 Acquired absence of left leg below knee; Z87.891 Personal history of nicotine dependence; Z79.82 Long term (current) use of aspirin; Z79.899 Other long term (current) drug therapy
CPT/HCPCS: OP; J0690; J1815; J2250; J2405; J2704; J2795; J7030; L1830

== ENCOUNTER 2020-03-04 13:16 | Emergency (ER) | payer MEDICARE ==
[2008-09-24 00:02] VITALS: BP 162/90
[~2020-03-04] VITALS: Ht 188 cm; Wt 88.6 kg
[2020-03-04 13:29] VITALS: BP 109/80; TEMP 97.8
[2020-03-04] MEDS ORDERED: BACTRIM DS 8001 TAB PO (13:55)
[2020-03-04 14:32] VITALS: PULSE 87
== END 2020-03-04 14:33 | disposition home or self-care (01) ==
LOC: COL.ER 13:16
DX: T81.30XA Disruption of wound, unspecified, initial encounter (principal); E11.9 Type 2 diabetes mellitus without complications; Z79.4 Long term (current) use of insulin; W19.XXXA Unspecified fall, initial encounter; Y92.009 Unspecified place in unspecified non-institutional (private) residence as the place of occurrence of the external cause
CPT/HCPCS: J0696

== ENCOUNTER 2020-03-06 10:57 | Emergency (ER) | payer MEDICARE ==
[2008-09-24 00:02] VITALS: BP 162/90
[~2020-03-06] VITALS: Ht 188 cm; Wt 86.4 kg
[2020-03-06 11:10] VITALS: TEMP 97.9
[2020-03-06] MEDS ORDERED: NORCO 325 MG-51 TAB PO (12:17)
[2020-03-06 12:22] VITALS: BP 136/82; PULSE 86
[2020-03-06] MEDS ORDERED: CIPRO 500MG TA500 MG PO (13:57)
== END 2020-03-06 12:30 | disposition home or self-care (01) ==
LOC: COL.ER 10:57
DX: G89.18 Other acute postprocedural pain (principal); E11.9 Type 2 diabetes mellitus without complications; Z79.4 Long term (current) use of insulin; Z88.0 Allergy status to penicillin; Z89.511 Acquired absence of right leg below knee; Z89.512 Acquired absence of left leg below knee

== ENCOUNTER 2020-06-16 19:16 | Emergency (ER) | payer MEDICARE ==
[2008-09-24 00:02] VITALS: BP 162/90
[~2020-06-16] VITALS: Ht 188 cm; Wt 90.9 kg
[2020-06-16 19:16] VITALS: BP 144/110; TEMP 98
[2020-06-16 21:26] VITALS: PULSE 98
== END 2020-06-16 21:31 | disposition home or self-care (01) ==
LOC: COL.ER 19:16
DX: T87.89 Other complications of amputation stump (principal); E10.621 Type 1 diabetes mellitus with foot ulcer; N18.30 Chronic kidney disease, stage 3 unspecified; Z87.891 Personal history of nicotine dependence; Z88.0 Allergy status to penicillin; Z79.4 Long term (current) use of insulin; W19.XXXA Unspecified fall, initial encounter

== ENCOUNTER → 2020-06-30 | Outpatient (CLI) | payer MEDICARE | LOC: ZCOL.LAB 16:43 | DX: T81.33XD Disruption of traumatic injury wound repair, subsequent encounter (principal) ==

== ENCOUNTER → 2020-08-10 | Outpatient (CLI) | payer MEDICARE | LOC: COL.RAD 13:41 | DX: N18.30 Chronic kidney disease, stage 3 unspecified (principal) ==

== ENCOUNTER → 2020-08-13 | Outpatient (CLI) | payer MEDICARE | LOC: COL.RAD 13:59 | DX: T81.33XD Disruption of traumatic injury wound repair, subsequent encounter (principal); Z89.512 Acquired absence of left leg below knee ==

== ENCOUNTER → 2020-08-20 | Outpatient (CLI) | payer MEDICARE ==
[2020-08-20 15:16] LABS: BASO # 0.1 (0.0-0.2); BASO % 0.9 % (0.0-2.0); EOS # 0.5 (0.0-0.7); EOS % 7.5 % (0-4.0); GRAN # 3.8 (1.4-6.5); GRAN % 56.9 % (42.2-75.2); HEMATOCRIT 43.1 % (42.0-52.0); HEMOGLOBIN 14.5 g/dl (13.5-18.0); LYMPH # 1.7 (1.2-3.4); LYMPH % 25.9 % (20.0-51.0); MEAN CELL VOLUME 87 fl (80.0-100.0); MEAN CORPUSCULAR HEMOGLOBIN 29 pg (27.0-31.0); MEAN CORPUSCULAR HGB CONC 34 g/dl (33.0-37.0); MEAN PLATELET VOLUME 10.3 fl (7.4-10.4); MONO # 0.6 (0.1-0.6); MONO % 8.5 % (1.7-9.3); PLATELET COUNT 296 K/mm3 (130-400); RED BLOOD COUNT 4.96 M/mm3 (4.20-5.60); REDCELL DISTRIBUTION WIDTH-CV 12.3 % (11.5-14.5)
[2020-08-20 15:40] LABS: ERYTHROCYTE SEDIMENTATION RATE 7 mm/hr (0-15)
[2020-08-23 09:51] LABS: CALCIUM 9.6 mg/dL (8.4-10.2); CREATININE, serum 1.63 (0.66-1.25); POTASSIUM 5.4 mmol/L (3.4-5.0)
== END ==
LOC: COL.LAB 14:46
PROVIDERS: Nurse Practitioner
DX: R93.89 Abnormal findings on diagnostic imaging of other specified body structures (principal)

== ENCOUNTER → 2020-08-31 | Outpatient (CLI) | payer MEDICARE | LOC: COL.RAD 10:18 | DX: M86.8X6 Other osteomyelitis, lower leg (principal); M60.862 Other myositis, left lower leg; T87.44 Infection of amputation stump, left lower extremity; L97.929 Non-pressure chronic ulcer of unspecified part of left lower leg with unspecified severity; Z89.512 Acquired absence of left leg below knee | CPT/HCPCS: A9585 ==

== ENCOUNTER 2020-10-03 12:23 | Emergency (ER) | payer MEDICARE ==
[2008-09-24 00:02] VITALS: BP 162/90
[~2020-10-03] VITALS: Ht 188 cm; Wt 88.6 kg
[2020-10-03 12:30] VITALS: BP 106/78; TEMP 97.2
[2020-10-03 13:36] VITALS: PULSE 78
== END 2020-10-03 13:35 | disposition home or self-care (01) ==
LOC: COL.ER 12:23
DX: E10.9 Type 1 diabetes mellitus without complications (principal); M79.644 Pain in right finger(s); I12.9 Hypertensive chronic kidney disease with stage 1 through stage 4 chronic kidney disease, or unspecified chronic kidney disease; N18.30 Chronic kidney disease, stage 3 unspecified; Z88.0 Allergy status to penicillin; Z87.891 Personal history of nicotine dependence; Z79.4 Long term (current) use of insulin; Z79.82 Long term (current) use of aspirin

== ENCOUNTER 2020-11-03 08:00 | Outpatient (RCR) | payer MEDICARE ==
[2008-09-24 00:02] VITALS: BP 162/90
[2020-09-24 08:40] VITALS: BP 113/78; PULSE 84; TEMP 98.2
[2020-09-25 08:35] VITALS: BP 133/87; PULSE 84; TEMP 97.9
[2020-09-26 09:56] VITALS: BP 123/88; PULSE 89; TEMP 98.6
[2020-09-27 08:01] VITALS: BP 131/93; PULSE 92; TEMP 97.7
[2020-09-28 07:59] VITALS: BP 113/80; PULSE 87; TEMP 97.2
[2020-09-29 08:05] VITALS: BP 113/81; PULSE 90; TEMP 97.5
--- NOTE | 2020-09-30 08:20 | NUR ---
PICC intact right upper arm with sterile dressing change done with insertion site cleansed with chloraprep x 1, chlorhexidine impregnted disk applied, skin prep, stat lock, and tegaderm applied. no signs or symptoms of IV complications noted. no concerns voiced. re-wrapped with christina to protect catheter.
[2020-09-30 08:38] VITALS: BP 122/92; PULSE 86; TEMP 98.2
[2020-10-01 07:52] VITALS: BP 123/85; PULSE 82; TEMP 98.4
[2020-10-02 09:45] VITALS: BP 134/94; PULSE 86; TEMP 98.6
[2020-10-03 09:49] VITALS: BP 150/97; PULSE 86; TEMP 97.4
[2020-10-04 08:27] LABS: HEMATOCRIT 38.5 % (42.0-52.0); HEMOGLOBIN 12.7 g/dl (13.5-18.0); MEAN CELL VOLUME 88 fl (80.0-100.0); MEAN CORPUSCULAR HEMOGLOBIN 29 pg (27.0-31.0); MEAN CORPUSCULAR HGB CONC 33 g/dl (33.0-37.0); MEAN PLATELET VOLUME 9.4 fl (7.4-10.4); PLATELET COUNT 323 K/mm3 (130-400); REDCELL DISTRIBUTION WIDTH-CV 12.1 % (11.5-14.5)
[2020-10-04 08:31] VITALS: BP 137/88; PULSE 86; TEMP 97.9
[2020-10-04 08:41] LABS: ALBUMIN 3.7 gm/dL (3.5-5.0); BILIRUBIN,TOTAL 0.4 mg/dL (0.0-1.0); C-REACTIVE PROTEIN 0.7 mg/dL (0.0-0.9); CALCIUM 8.6 mg/dL (8.4-10.2); CREATININE, serum 1.26 (0.66-1.25); POTASSIUM 4.3 mmol/L (3.4-5.0); TOTAL PROTEIN 6.9 gm/dL (6.4-8.2)
[2020-10-05 08:02] VITALS: BP 145/98; PULSE 93; TEMP 98.4
[2020-10-06 08:36] VITALS: BP 135/89; PULSE 87; TEMP 98.1
[2020-10-07 08:24] VITALS: BP 126/87; PULSE 67; TEMP 98
[2020-10-08 08:03] VITALS: BP 124/85; PULSE 90; TEMP 97.9
[2020-10-09 08:21] VITALS: BP 108/73; PULSE 102; TEMP 97.8
[2020-10-10 08:10] VITALS: BP 126/89; PULSE 84; TEMP 97.4
[2020-10-11 08:15] VITALS: BP 156/95; PULSE 97; TEMP 98.3
[2020-10-11 08:16] LABS: HEMATOCRIT 40.2 % (42.0-52.0); HEMOGLOBIN 13.2 g/dl (13.5-18.0); MEAN CELL VOLUME 88 fl (80.0-100.0); MEAN CORPUSCULAR HEMOGLOBIN 29 pg (27.0-31.0); MEAN CORPUSCULAR HGB CONC 33 g/dl (33.0-37.0); MEAN PLATELET VOLUME 9.5 fl (7.4-10.4); PLATELET COUNT 339 K/mm3 (130-400); RED BLOOD COUNT 4.59 M/mm3 (4.20-5.60); REDCELL DISTRIBUTION WIDTH-CV 12.2 % (11.5-14.5)
[2020-10-11 08:28] LABS: BILIRUBIN,TOTAL 0.5 mg/dL (0.0-1.0); C-REACTIVE PROTEIN 1.2 mg/dL (0.0-0.9); CALCIUM 8.7 mg/dL (8.4-10.2); CREATININE, serum 1.45 (0.66-1.25); POTASSIUM 4.6 mmol/L (3.4-5.0); TOTAL PROTEIN 7.6 gm/dL (6.4-8.2)
[2020-10-12 08:07] VITALS: BP 82/42; PULSE 96; TEMP 97.9
[2020-10-13 08:20] VITALS: BP 146/83; PULSE 103; TEMP 98.5
[2020-10-14 08:20] VITALS: BP 122/83; PULSE 99; TEMP 97.4
[2020-10-15 08:02] VITALS: BP 108/73; PULSE 88; TEMP 98.2
[2020-10-16 08:30] VITALS: BP 108/79; PULSE 72; TEMP 98.6
[2020-10-17 08:09] VITALS: BP 128/86; PULSE 86; TEMP 97.4
[2020-10-18 08:12] VITALS: BP 126/84; PULSE 91; TEMP 98.7
[2020-10-18 08:24] LABS: HEMATOCRIT 40.1 % (42.0-52.0); HEMOGLOBIN 13.1 g/dl (13.5-18.0); MEAN CELL VOLUME 87 fl (80.0-100.0); MEAN CORPUSCULAR HEMOGLOBIN 29 pg (27.0-31.0); MEAN CORPUSCULAR HGB CONC 33 g/dl (33.0-37.0); MEAN PLATELET VOLUME 10.1 fl (7.4-10.4); PLATELET COUNT 271 K/mm3 (130-400); RED BLOOD COUNT 4.59 M/mm3 (4.20-5.60); REDCELL DISTRIBUTION WIDTH-CV 12.2 % (11.5-14.5)
[2020-10-18 08:38] LABS: BILIRUBIN,TOTAL 0.5 mg/dL (0.0-1.0); CALCIUM 8.8 mg/dL (8.4-10.2); CREATININE, serum 1.47 (0.66-1.25); POTASSIUM 4.8 mmol/L (3.4-5.0); TOTAL PROTEIN 7.2 gm/dL (6.4-8.2)
[2020-10-19 08:06] VITALS: BP 133/88; PULSE 83; TEMP 97.5
[2020-10-20 08:00] VITALS: BP 137/95; PULSE 100; TEMP 97.8
[2020-10-21 08:29] VITALS: BP 124/85; PULSE 82; TEMP 97.9
[2020-10-22 08:05] VITALS: BP 127/82; PULSE 92; TEMP 97.7
[2020-10-23 08:14] VITALS: BP 130/87; PULSE 78; TEMP 98
[2020-10-24 09:24] VITALS: BP 112/78; PULSE 86; TEMP 97.8
[2020-10-25 08:06] VITALS: BP 148/98; PULSE 96; TEMP 97.7
[2020-10-25 08:12] LABS: HEMATOCRIT 41.6 % (42.0-52.0); HEMOGLOBIN 13.9 g/dl (13.5-18.0); MEAN CELL VOLUME 87 fl (80.0-100.0); MEAN CORPUSCULAR HEMOGLOBIN 29 pg (27.0-31.0); MEAN CORPUSCULAR HGB CONC 33 g/dl (33.0-37.0); MEAN PLATELET VOLUME 9.8 fl (7.4-10.4); PLATELET COUNT 281 K/mm3 (130-400); RED BLOOD COUNT 4.78 M/mm3 (4.20-5.60)
[2020-10-25 08:20] LABS: ALBUMIN 4.2 gm/dL (3.5-5.0); BILIRUBIN,TOTAL 0.5 mg/dL (0.0-1.0); C-REACTIVE PROTEIN 0.6 mg/dL (0.0-0.9); CALCIUM 8.8 mg/dL (8.4-10.2); CREATININE, serum 1.5 (0.66-1.25)
[2020-10-26 08:10] VITALS: BP 120/83; PULSE 87; TEMP 98
[2020-10-27 08:05] VITALS: BP 101/75; PULSE 89; TEMP 97.7
[2020-10-28 08:01] VITALS: BP 124/86; PULSE 95; TEMP 98.3
[2020-10-29 08:00] VITALS: BP 114/72; PULSE 84; TEMP 97.7
[2020-10-30 08:25] VITALS: BP 116/93; PULSE 84; TEMP 98.4
[2020-10-31 07:56] VITALS: BP 118/79; PULSE 92; TEMP 97.9
[2020-11-01 08:10] VITALS: BP 118/91; PULSE 92; TEMP 97.7
[2020-11-01 08:17] LABS: HEMATOCRIT 40.2 % (42.0-52.0); HEMOGLOBIN 13.2 g/dl (13.5-18.0); MEAN CELL VOLUME 87 fl (80.0-100.0); MEAN CORPUSCULAR HEMOGLOBIN 29 pg (27.0-31.0); MEAN CORPUSCULAR HGB CONC 33 g/dl (33.0-37.0); MEAN PLATELET VOLUME 9.6 fl (7.4-10.4); PLATELET COUNT 307 K/mm3 (130-400); RED BLOOD COUNT 4.63 M/mm3 (4.20-5.60); REDCELL DISTRIBUTION WIDTH-CV 12.3 % (11.5-14.5)
[2020-11-01 08:33] LABS: BILIRUBIN,TOTAL 0.4 mg/dL (0.0-1.0); CALCIUM 8.7 mg/dL (8.4-10.2); CREATININE, serum 1.45 (0.66-1.25); POTASSIUM 4.9 mmol/L (3.4-5.0); TOTAL PROTEIN 7.5 gm/dL (6.4-8.2)
[2020-11-01 08:34] LABS: C-REACTIVE PROTEIN 0.5 mg/dL (0.0-0.9)
[~2020-11-03] VITALS: Ht 188 cm; Wt 86.6 kg
[2020-11-03 08:08] VITALS: BP 149/93; PULSE 74; TEMP 98
--- NOTE | 2020-11-03 09:00 | NUR ---
DRESSING TO PICC SITE ON RIGHT UPPER ARM CLEAN AND DRY, REVIEWED CARE INSTRUCTIOINS AND PT DISCHARGED
== END 2020-11-03 10:00 | disposition home or self-care (01) ==
LOC: EUO
PROVIDERS: Family Medicine
DX: M86.162 Other acute osteomyelitis, left tibia and fibula (principal)
CPT/HCPCS: J0696; J0878

== ENCOUNTER 2020-11-17 16:50 | Emergency (ER) | payer MEDICARE ==
[2008-09-24 00:02] VITALS: BP 162/90
[~2020-11-17] VITALS: Ht 188 cm; Wt 88.6 kg
[2020-11-17 16:51] VITALS: TEMP 97.5
[2020-11-17 17:20] LABS: COLLECTION METHOD CLEAN CATCH
[2020-11-17 17:23] LABS: BASO # 0.1 (0.0-0.2); BASO % 0.5 % (0.0-2.0); EOS # 0.2 (0.0-0.7); EOS % 1.8 % (0-4.0); GRAN # 10.9 (1.4-6.5); GRAN % 83.1 % (42.2-75.2); HEMOGLOBIN 13.6 g/dl (13.5-18.0); LYMPH % 7.8 % (20.0-51.0); MEAN CELL VOLUME 87 fl (80.0-100.0); MEAN CORPUSCULAR HEMOGLOBIN 29 pg (27.0-31.0); MEAN CORPUSCULAR HGB CONC 33 g/dl (33.0-37.0); MEAN PLATELET VOLUME 10.6 fl (7.4-10.4); MONO # 0.9 (0.1-0.6); MONO % 6.6 % (1.7-9.3); PLATELET COUNT 230 K/mm3 (130-400); RED BLOOD COUNT 4.74 M/mm3 (4.20-5.60); REDCELL DISTRIBUTION WIDTH-CV 12.2 % (11.5-14.5)
[2020-11-17 17:28] LABS: PH 6 (5-8); SQUAMOUS EPITHELIAL None Seen /hpf; URINE APPEARANCE Clear; URINE BACTERIA None Seen /hpf; URINE BILIRUBIN Negative (NEGATIVE); URINE BLOOD 1+ (NEGATIVE); URINE COLOR Straw; URINE GLUCOSE 1+ (NEGATIVE); URINE KETONE Negative (NEGATIVE); URINE LEUKOCYTE ESTERASE Negative (NEGATIVE); URINE NITRATE Negative (NEGATIVE); URINE PROTEIN(semi-quant) Negative (NEGATIVE); URINE RBC None Seen /hpf; URINE UROBILINOGEN Negative (NEGATIVE)
[2020-11-17 18:22] LABS: ALBUMIN 3.9 gm/dL (3.5-5.0); BILIRUBIN,TOTAL 0.3 mg/dL (0.0-1.0); CALCIUM 8.8 mg/dL (8.4-10.2); CREATININE, serum 1.66 (0.66-1.25); POTASSIUM 4.1 mmol/L (3.4-5.0); TOTAL PROTEIN 7.2 gm/dL (6.4-8.2)
[2020-11-17 18:39] VITALS: BP 110/79; PULSE 91
== END 2020-11-17 18:39 | disposition home or self-care (01) ==
LOC: COL.ER 16:50
PROVIDERS: Emergency Medicine; Nurse Practitioner
DX: E10.9 Type 1 diabetes mellitus without complications (principal); M79.644 Pain in right finger(s); Z87.891 Personal history of nicotine dependence; Z88.0 Allergy status to penicillin; Z79.82 Long term (current) use of aspirin

== ENCOUNTER 2021-01-11 18:45 | Emergency (ER) | payer MEDICARE ==
[~2021-01-11] VITALS: Ht 188 cm; Wt 86.4 kg
[2021-01-11 18:52] VITALS: TEMP 97.9
[2021-01-11] MEDS ORDERED: DOXYCYCLINE 10100 MG PO (20:01)
[2021-01-11] MEDS ORDERED: BACTROBAN 22GM22 GM NAS (20:01)
[2021-01-11 20:21] VITALS: BP 132/70; PULSE 80
== END 2021-01-12 00:20 | disposition home or self-care (01) ==
LOC: COL.ER 18:45
DX: L02.214 Cutaneous abscess of groin (principal); E11.9 Type 2 diabetes mellitus without complications; Z79.4 Long term (current) use of insulin

== ENCOUNTER → 2021-08-08 | Outpatient (CLI) | payer MEDICARE ==
[~2021-08-08] MED LIST changes: +BACTROBAN 22GM22 GM NAS
== END ==
LOC: ZCOL.LAB 16:39
DX: S81.002D Unspecified open wound, left knee, subsequent encounter (principal)

== ENCOUNTER → 2021-09-02 | Outpatient (CLI) | payer MEDICARE | LOC: COL.RAD 09:13 | DX: M17.12 Unilateral primary osteoarthritis, left knee (principal); L97.909 Non-pressure chronic ulcer of unspecified part of unspecified lower leg with unspecified severity; Z98.890 Other specified postprocedural states ==

== ENCOUNTER → 2021-09-19 | Outpatient (CLI) | payer MEDICARE | LOC: COL.RAD 09:29 | DX: L97.929 Non-pressure chronic ulcer of unspecified part of left lower leg with unspecified severity (principal); Z89.512 Acquired absence of left leg below knee | CPT/HCPCS: A9575 ==

== ENCOUNTER → 2022-03-15 | Outpatient (CLI) | payer MEDICARE | LOC: MHCPAIN 09:49 | DX: G54.6 Phantom limb syndrome with pain (principal); Z89.511 Acquired absence of right leg below knee; Z89.512 Acquired absence of left leg below knee | CPT/HCPCS: G0463 ==

== ENCOUNTER → 2022-04-12 | Outpatient (CLI) | payer MEDICARE | LOC: MHCPAIN 13:28 | DX: G54.6 Phantom limb syndrome with pain (principal); Z89.511 Acquired absence of right leg below knee; Z89.512 Acquired absence of left leg below knee; E10.69 Type 1 diabetes mellitus with other specified complication; E10.40 Type 1 diabetes mellitus with diabetic neuropathy, unspecified | CPT/HCPCS: G0463 ==

== ENCOUNTER 2022-05-26 10:48 | Outpatient (RCR) | payer MEDICARE | END 2022-05-26 12:00 | disposition home or self-care (01) | LOC: WSPT 10:48 | DX: G54.6 Phantom limb syndrome with pain (principal) ==

== ENCOUNTER 2022-09-01 05:06 | Day surgery (SDC) | payer MEDICARE ==
[2008-09-24 00:02] VITALS: BP 162/90
[~2022-09-01] VITALS: Ht 160 cm; Wt 92.7 kg
[2022-09-01] MEDS ORDERED: PAMELOR 25MG25 MG PO (06:13)
[2022-09-01] MEDS ORDERED: NEURONTIN300 MG/CAP PO (06:13)
[2022-09-01 06:29] VITALS: BP 146/96; PULSE 92; TEMP 98.1
[2022-09-01 07:50] VITALS: BP 131/89; PULSE 88; TEMP 98.2
--- NOTE | 2022-09-01 07:50 | NUR ---
0750THIS NURSE TOOK OVER CARE FOR PATIENT. THIS NURSE INTRODUCED SELF TO PATIENT. PATIENT WAS SLEEPING SOUNDLY WHEN I ENTERED ROOM, PATIENT WOKE EASILY TO VERBAL STIMULI. RESPIRATIONS EVEN AND UNLABORED. VITAL SIGNS STABLE. PATIENT IS TOLERATING PO FLUIDS FINE. NO C/O PAIN OR N/V. 0800 DISCONTINUED IV FROM LEFT FOREARM WITH NO DIFFICULTIES. 0815 DISCHARGE INSTRUCTIONS PROVIDED. PATIENT DOES NOT HAVE ANY QUESTIONS OR CONCERNS. VERBALIZED UNDERSTANDING. 0825 PATIENT DRESSES SELF. 0845 PATIENT DISCHARGES FROM UNIT VIA WHEELCHAIR.
[2022-09-01 08:15] VITALS: BP 128/88; PULSE 88
== END 2022-09-01 08:45 | disposition home or self-care (01) ==
LOC: SDCO 05:06
DX: M65.341 Trigger finger, right ring finger (principal); I10 Essential (primary) hypertension; Z79.899 Other long term (current) drug therapy
CPT/HCPCS: J0690; J2704; J7030

== ENCOUNTER 2022-10-06 13:00 | Outpatient (RCR) | payer MEDICARE ==
--- NOTE | 2022-09-27 09:16 | NUR ---
Initial visit attempt; Patient in shower, Air Defence Officer spoke with his , welcoming her and offering God's blessings for Kulwinder, wishing him a rapid recovery.
[~2022-10-06 13:00] MED LIST changes: +NEURONTIN300 MG/CAP PO; +PAMELOR 25MG25 MG PO
== END 2022-10-20 | disposition home or self-care (01) ==
LOC: WSOT
DX: G54.6 Phantom limb syndrome with pain (principal)

== ENCOUNTER 2023-06-21 13:30 | Emergency (ER) | payer MEDICARE ==
[~2023-06-21] VITALS: Ht 188 cm; Wt 90.9 kg
[2023-06-21 14:46] LABS: BASO # 0.1 K/mm3 (0.0-0.2); BASO % 0.6 % (0.0-2.0); EOS # 0.5 K/mm3 (0.0-0.7); EOS % 4.7 % (0.0-4.0); GRAN # 8.2 K/mm3 (1.4-6.5); GRAN % 71.4 % (42.2-75.2); HEMATOCRIT 39.5 % (42.0-52.0); HEMOGLOBIN 13.5 g/dl (13.5-18.0); LYMPH # 1.5 K/mm3 (1.2-3.4); LYMPH % 12.7 % (20.0-51.0); MEAN CELL VOLUME 88 fl (80.0-100.0); MEAN CORPUSCULAR HEMOGLOBIN 30 pg (27-31); MEAN CORPUSCULAR HGB CONC 34 g/dl (33.0-37.0); MEAN PLATELET VOLUME 9.6 fl (7.4-10.4); MONO # 1.2 K/mm3 (0.1-0.6); MONO % 10.3 % (1.7-9.3); PLATELET COUNT 226 K/mm3 (130-400); RED BLOOD COUNT 4.48 M/mm3 (4.20-5.60); REDCELL DISTRIBUTION WIDTH-CV 11.9 % (11.5-14.5)
[2023-06-21 14:54] LABS: ERYTHROCYTE SEDIMENTATION RATE 27 mm/hr (0-15)
[2023-06-21 15:06] LABS: ALBUMIN 3.8 gm/dL (3.5-5.0); BILIRUBIN,TOTAL 0.5 mg/dL (0.2-1.2); C-REACTIVE PROTEIN 2.12 mg/dL (0.00-0.50); CALCIUM 8.9 mg/dL (8.4-10.2); CREATININE, serum 1.48 mg/dL (0.72-1.25); POTASSIUM 4.3 mmol/L (3.5-4.5); TOTAL PROTEIN 7.6 gm/dL (6.2-8.1)
[2023-06-21] MEDS ORDERED: NORCO 325 MG-51 TAB PO (15:21)
[2023-06-21] MEDS ORDERED: CLEOCIN HCL300 MG PO (15:21)
[2023-06-21 15:45] VITALS: BP 145/95; PULSE 100; TEMP 98.5
== END 2023-06-21 15:50 | disposition home or self-care (01) ==
LOC: COL.ER 13:30
PROVIDERS: Emergency Medicine
DX: L03.115 Cellulitis of right lower limb (principal); Z88.0 Allergy status to penicillin

== ENCOUNTER → 2023-09-11 | Outpatient (CLI) | payer MEDICARE ==
[~2023-09-11] MED LIST changes: +Gadoterate 20 ML VIAL IV ONE
== END ==
LOC: COL.RAD 07:28
DX: R79.82 Elevated C-reactive protein (CRP) (principal)
CPT/HCPCS: A9575

== ENCOUNTER → 2023-11-27 | Outpatient (CLI) | payer MEDICARE ==
[~2023-11-27] MED LIST changes: -Gadoterate 20 ML VIAL IV ONE; +Iohexol 300 - 100 ML VIAL IV ONE; +NS 100 ML IV SCH
== END ==
LOC: COL.RAD 07:23
DX: I35.0 Nonrheumatic aortic (valve) stenosis (principal); Z95.2 Presence of prosthetic heart valve
CPT/HCPCS: Q9967

== ENCOUNTER 2024-03-22 19:39 | Emergency (ER) | payer MEDICARE ==
[~2024-03-22] VITALS: Ht 188 cm; Wt 86.4 kg
[~2024-03-22 19:39] MED LIST changes: -Iohexol 300 - 100 ML VIAL IV ONE; -NS 100 ML IV SCH
[2024-03-22 19:45] VITALS: TEMP 98.5
[2024-03-22] MEDS ORDERED: CLEOCIN HCL300 MG PO (20:25)
[2024-03-22 20:39] VITALS: BP 115/78; PULSE 92
== END 2024-03-22 20:41 | disposition home or self-care (01) ==
LOC: COL.ER 19:39
DX: L03.116 Cellulitis of left lower limb (principal); Z88.0 Allergy status to penicillin; Z87.891 Personal history of nicotine dependence